=== PATIENT | male | born 1955 | race Caucasian/White ===

== ENCOUNTER 2017-07-12 16:58 | Observation (INO) | payer MEDICARE ==
--- NOTE | 2017-07-12 21:34 | PDOC.FPRHP ---
- History of Present Illness Chief Complaint: left sided rib/chest wall pain, SOB History of Present Illness: 62 yo M w/ PMH of COPD, cirrhosis, chronic hep c, h/o alcohol abuse, h/o tobacco abuse presented to outside ED for cc of left side chest wall pain that has been occurring for the last 2 days. 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 Denies any trauma to the area. He reports the pain is aching in nature and has been constant. It is worse with bending and side twisting movement in addition to laying on the affected side. He has tried to take ibuprofen and tylenol at home w/o relief of symptoms. He denied associated sob, nvdc, cp. He does endorse pain with deep inspiration and cough. He has copd and reports chronic cough, but does endorse feeling off recently and described as though he was beginning to get a cold. He denied any fever, chills, but does report congestion. In the ED he had a negative cxr, but elevated d-dimer which prompted evaluation of pe W/ CT-A. There was no evidence of PE; however, there was noted to be b/l pleural masses concerning for malignant lesions vs round pneumonia. ED Course: Rocephin, morphine, duonebs, azithromycin, ASA - Allergies/Adverse Reactions Allergies Allergy/AdvReac Type Severity Reaction Status Date / Time No Known Allergies Allergy Verified 07/12/17 22:34 - Home Medications Medication Instructions Recorded Confirmed Type Albuterol Sulfate [Proair HFA] 1 puff INH Q4HR PRN 07/12/17 07/12/17 History Fluticasone/Salmeterol [Advair 1 inh IH BID 07/12/17 07/12/17 History Diskus 250/50] Spironolactone [Aldactone] 50 mg PO DAILY 07/12/17 07/12/17 History Tamsulosin HCl [Tamsulosin HCl] 0.4 mg PO HS 07/12/17 07/12/17 History - History PMHx: COPD, cirrhosis 2/2 alcohol abuse and chronic hep c PSHx: Tonsillectomy, appendectomy, Rt knee external fixation FHx: NA Social: Prior 1/2 bottle liquor/day plus 30 beers per day drinker for approx 35 years quit 9 months ago. Prior 3ppd smoker with 90 pack year history, quit approx 15 years ago - Review of Systems General: reports: fatigue. denies: fever/chills, night sweats Eyes: denies: eye pain, vision changes ENT: reports: nasal congestion. denies: rhinorrhea Respiratory: reports: cough, congestion, shortness of breath Cardiovascular: reports: edema (chronic). denies: chest pain, palpitation Gastrointestinal: denies: nausea, vomiting, diarrhea, constipation, abdominal pain Genitourinary: denies: incontinence, polyuria Skin: denies: rashes, lesions Musculoskeletal: denies: pain, tenderness, arthritis/arthralgias Neurological: denies: numbness, syncope, weakness - Vital signs BP: 177/73 HR: 76 RR: 18 Tmax: 98.8 Pox: 95% on RA Wt: 101Kg - Physical Exam Constitutional: NAD, awake, alert and oriented HEENT: normocephalic and atraumatic, PERRLA, EOMI, conjunctiva clear, grossly normal vision, TM's clear and intact, grossly normal hearing, MMM, oropharynx clear, other (conjunctival icterus) Neck: supple, trachea midline, no LAD, no JVD, no thyromegaly Chest: other (ttp mid-axillary line approx ribs 8-11) Heart: RRR, normal S1/S2, no murmurs/rubs/gallops, pulses present, other (trace edema, non-pitting b/l LE) Lungs: CTAB, no respiratory distress, good air movement, no wheezing, no retractions Abdomen: soft, non-tender, bowel sounds present, no masses/distention Musculoskeletal: normal structure, normal tone, ROM grossly normal Neurological: no focal deficit, normal sensation Skin: no rash/lesions, good turgor, capillary refill <2 seconds Heme/Lymphatic: no unusual bruising or bleeding, no purpura, no petechia FMR H&P: Results - Labs Result Diagrams: 07/13/17 04:38 07/13/17 04:38 - Radiology Interpretation CT scan - chest Status: report reviewed by me (b/l pleural masses concerning for malignant lesions vs round pneumonia) Chest x-ray Status: report reviewed by me (NAD) FMR H&P: A/P - Problem List (1) Community acquired pneumonia Current Visit: Yes Status: Acute Code(s): J18.9 - PNEUMONIA, UNSPECIFIED ORGANISM (2) Lung mass Current Visit: Yes Status: Acute Code(s): R91.8 - OTHER NONSPECIFIC ABNORMAL FINDING OF LUNG FIELD (3) Pleurisy Current Visit: Yes Status: Acute Code(s): R09.1 - PLEURISY (4) COPD (chronic obstructive pulmonary disease) Current Visit: Yes Status: Chronic (5) Cirrhosis Current Visit: Yes Status: Chronic Code(s): K74.60 - UNSPECIFIED CIRRHOSIS OF LIVER Qualifiers: Hepatic cirrhosis type: alcoholic cirrhosis Ascites presence: without ascites Qualified Code(s): K70.30 - Alcoholic cirrhosis of liver without ascites (6) Tobacco abuse Current Visit: Yes Status: Resolved Code(s): Z72.0 - TOBACCO USE (7) Transaminitis Current Visit: Yes Status: Chronic Code(s): R74.0 - NONSPEC ELEV OF LEVELS OF TRANSAMNS & LACTIC ACID DEHYDRGNSE (8) Alcohol abuse Current Visit: Yes Status: Resolved Code(s): F10.10 - ALCOHOL ABUSE, UNCOMPLICATED - Plan 1) CAP: Pt given rocephin and azithromycin in ED 2/2 ct findings although no clinical s/s of pneumonia. CURB-65 of 0. Pt will be admitted for observation. O2 prn maintain sats >90%. Consider po abx and constinuation of therapy op if pt remains stable overnight. 2) Lung masses: concerning for malignancy vs round pneumonia, although b/l nature of lesions makes this less likely. Possibly left sided postobstructive component although pt has no respiratory s/s and is maintaining O2 sats. Given pt history consider primary lung ca or primary liver ca with mets. Can likely be worked up OP. Call pcp in am. 3) Pleurisy: likely related to #2 vs #1. Toradol and tylenol 3 for pain control. 4)COPD: Not in acute exacerbation, cont home medications 5) h/o alcohol abuse: cessation 6) h/o tobacco abuse: cessation, pt has not smoked for approx 15 years 7) Cirrhosis 2/2 hepc and alcohol abuse, appears at baseline. Cont home medications. 8) Thrombocytopenia: 2/2 #7. Monitor platelets 9) Transaminitis: 2/2 alcohol abuse and hepc, am cmp, trend 10) PPX: Pepcid and lovenox for gi and dvt ppx, respectively. 11) Code status: DNR, per pt he has OOH DNR and wishes to be DNR. Disposition/LOS: stable, </= 2 days FMR H&P: Upper Level - Pertinent history 62 yo CM with PMHx Hep C, COPD, heavy alcohol use and former tobacco abuse presented to outside ED for cough and L sided chest pain. Pt was in normal state of health until last couple days when developed mild cough with yellow phlegm and difficulty catching his breath. C/o L sided rib pain worse with movements and deep breathing. 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 Described as soreness like someone punched me . Not relieved by Tylenol. Pt felt his symptoms were consistent with an early URI. L sided chest pain still present today so came to ED. Found on chest CTA to have bibasilar lung masses vs PNA and no PE. Given Rocephin and transferred to at that time. Pt used to drink 30 pack of beer and pint whiskey daily for 39 years. Quit 9 months ago due to concern about liver cirrhosis. Heavy former smoker 3 pack/day for 37 yrs. Quit smoking 15 yrs ago. Last chest imaging was MRI 3-4 yrs ago. PCP: Thelma. - Pertinent findings Gen: alert, NAD, well-developed CV: RRR, no m/r/g HEENT: MMM Lungs: scattered wheezing, otherwise CTAB, no rhonchi, prolonged expiratory phase, no increased WOB Chest: point tenderness on L lateral chest overlying rib 8 or 9 Abd: NT/ND Ext: trace BLE edema Psych: appropriate, A&O x4 - Plan Date/Time: 07/12/172133 1. CAP. Pt may have PNA either coinciding with lung masses or as what is being viewed as lung masses on CTA chest. Pt transferred from outside ED. No hypoxia, elevated WBC count, or fevers. CURB-65 of 0. Check procalcitonin. Lung masses new with concern for malignancy. Will discuss in AM about ability to f/u with PCP as Dr. Renee is his outpt provider. Rocephin given. With mild symptoms, consider transition to oral abx in AM with possible discharge. Observation overnight with pain control for pleurisy-type pain that is likely related to this. 2. Lung masses. See above. New finding on CTA chest. Pt has hx Hep C, heavy tobacco and alcohol use, and distant methamphetamine use. No recent lung cancer screening. CTA shows possible pulmonary parenchymal metastatic lesions vs round PNA at both bases. 2x2 cm each. As above, will discuss in AM with Dr. Renee and medical team whether to involve pulmonary or complete workup outpatient. Likely need biopsy. Small area of cavitation may suggest squamous cell primary if metastatic. 3. Pleuritis. Toradol now and monitor. Morphine improved in outside ED. Pain control prior to d/c from hospital. 4. COPD. Appears at baseline. Home meds. 5. Transaminitis. Chronic in nature. Likely 2/2 Hep C. Alcohol abuse pattern but pt endorses no drinking in 9 months. Repeat in AM. 6. Cirrhosis 2/2 alcohol abuse and Hep C. Unclear if cleared or chronic infection. Not currently drinking alcohol. Cirrhotic liver on imaging. Speak with Dr. Rneee in AM for more hx. Stigmata of liver dz seen on labs. Continue spironolactone. No ascites noted. Lung masses read as potential metastatic lesions. Consider liver as potential primary although CT showed no distinct masses. 7. Former tobacco use. Heavy hx with around 90 pack-yrs. Quit 15 yrs ago. 8. Former alcohol use. Heavy abuse although none currently per pt. 9. Thrombocytopenia. Likely 2/2 chronic liver disease. I, Franklin Alexander, have evaluated this patient and agree with findings/plan as outlined by internal medicine nurse practitioner resident. Pertinent changes/additions are listed here. Attending Addendum - Attending Addendum Date/Time: 07/13/17 [id number] I personally evaluated the patient and discussed the management with Dr. Tyler I agree with the History, Examination, Assessment and Plan documented above with any addition or exceptions noted below- Briefly this is a 62 yo male with h /o COPD, cirrhosis, Hepatitis C, alcohol and tobacco abuse presented with left sided chest pain worse with deep breath or movement for last 2 days. Has had new onset of cough with thick yellow sputum during this time. Denies any SOB above his baseline. Denies any fever/chills, abdominal pain, N/V. PMH/PSH/All/ Meds/SH/ROS reviewed and agree with resident's documentation. BP: 177/73 HR: 76 RR: 18 Tmax: 98.8 Pox: 95% on RA Wt: 101Kg Exam repeated by me and agree with resident's findings. Labs- WBC=4.3 Hgb=12.6 Hct=36.1 Plt=77 Cr=0.67 XYH=884 ALT=49 Alb=2.9 CXR- no acute findings. CTA- negative for PE; possible pleural masses versus rounded pneumonia. A/P: 1) Pleuritic chest pain most likely from bronchitis versus early pneumonia- continue rocephin; pain meds. 2) COPD- continue home meds. 3) Cirrhosis-compensated
[2017-07-12 22:42] VITALS: BMI 30.4
[2017-07-12] MEDS ORDERED: Ondansetron ODT 4 MG TAB SL PRN (22:54)
[2017-07-12] MEDS ORDERED: Ondansetron HCl/PF 4 MG/2 ML Vial IVP PRN ×2 (22:54→23:10)
[2017-07-12] MEDS ORDERED: Acetaminophen 325 MG TAB PO PRN ×2 (22:54→23:10)
[2017-07-12] MEDS ORDERED: Albuterol Sulfate 2.5 mg/3 ml Neb NEB PRN ×2 (22:54→23:13)
[2017-07-12] MEDS ORDERED: cefTRIAXone\\ROCEPHIN 2 GM in Sodium Chloride 0.9% 100 ML IVPB SCH (23:00)
[2017-07-12] MEDS ORDERED: Ketorolac Tromethamine 30 MG/ML VIAL IVP SCH (23:00)
[2017-07-12] MEDS ORDERED: Ondansetron ODT 4 MG TAB PO PRN (23:10)
[2017-07-13] MEDS: Acetaminophen/Codeine 30-300mg Tablet PO PRN ×2 (02:56→08:47)
[2017-07-13 05:44] LABS: ALT (SGPT) 49 U/L (8-55); AST (SGOT) 104 U/L (5-34); Albumin 2.4 g/dL (3.4-4.8); Alkaline Phosphatase 72 U/L (40-150); Anion Gap 8 mmol/L (10-20); BUN (Urea Nitrogen) 7 mg/dL (8.4-25.7); Bilirubin, Total 2.3 mg/dL (0.2-1.2); Calc. Creatinine Clearance 160 mL/min (70-130); Calcium 7.7 mg/dL (7.8-10.44); Carbon Dioxide 24 mmol/L (23-31); Chloride 108 mmol/L (98-107); Estimated GFR-MDRD Greater than 90; Globulin 3.8 g/dL (2.4-3.5); Glucose 89 mg/dL (80-115); Potassium 3.5 mmol/L (3.5-5.1); Protein, Total 6.2 g/dL (5.8-8.1); Sodium 136 mmol/L (136-145)
--- NOTE | 2017-07-13 06:04 | PDOC.FM ---
- Subjective Subjective: Patient states his pain is improved. He states he still gets significant pain with coughing. He was counseled on the fact of finding two masses in his lungs. He understands about having a close outpatient follow up. No other complaints today. - Objective Vital Signs & Weight: Vital Signs (12 hours) Temp Pulse Resp BP Pulse Ox 07/13/17 03:00 98.3 F 76 17 119/65 95 07/13/17 00:10 96 07/12/17 23:21 98.4 F 79 20 07/12/17 22:07 98.4 F 79 20 139/78 97 Weight Weight 101.695 kg Result Diagrams: 07/13/17 04:38 07/13/17 04:38 Phys Exam - Physical Examination Constitutional: NAD HEENT: moist MMs Neck: no nodes Respiratory: wheezing present, clear to auscultation bilateral Cardiovascular: RRR, no significant murmur Gastrointestinal: soft, non-tender, no distention, positive bowel sounds Musculoskeletal: no edema, pulses present Neurological: non-focal, normal sensation, moves all 4 limbs Lymphatic: no nodes Psychiatric: normal affect, A&O x 3 Skin: no rash Dx/Plan (1) Community acquired pneumonia Code(s): J18.9 - PNEUMONIA, UNSPECIFIED ORGANISM Status: Acute (2) Lung mass Code(s): R91.8 - OTHER NONSPECIFIC ABNORMAL FINDING OF LUNG FIELD Status: Acute (3) Pleurisy Code(s): R09.1 - PLEURISY Status: Acute (4) COPD (chronic obstructive pulmonary disease) Status: Chronic (5) Cirrhosis Code(s): K74.60 - UNSPECIFIED CIRRHOSIS OF LIVER Status: Chronic Qualifiers: Hepatic cirrhosis type: alcoholic cirrhosis Ascites presence: without ascites Qualified Code(s): K70.30 - Alcoholic cirrhosis of liver without ascites (6) Transaminitis Code(s): R74.0 - NONSPEC ELEV OF LEVELS OF TRANSAMNS & LACTIC ACID DEHYDRGNSE Status: Chronic - Plan Plan: 1) Community Acquired Pneumonia, ruled out - Pt given rocephin and azithromycin in ED 2/2 ct findings although no clinical s/s of pneumonia - CURB-65 of 0 - Pro-calcitonin negative - Antibiotics not continued 2) Lung masses - concerning for malignancy vs round pneumonia - Given pt history consider primary lung ca or primary liver ca with mets - Call to PCP pending 3) Pleurisy - likely related to #2 vs #1. - Toradol and tylenol 3 for pain control. 4)COPD - Not in acute exacerbation. - Continue home meds 5) h/o alcohol abuse - cessation 6) h/o tobacco abuse - cessation - pt has not smoked for approx 15 years 7) Cirrhosis 2/2 hepc and alcohol abuse - appears at baseline - Cont home medications. 8) Thrombocytopenia - Secondary to Cirrhosis - Monitor platelets 9) Transaminitis - 2/2 alcohol abuse and hepc - Trend Disposition: Stable, Will plan for discharge and outpatient follow up.
[2017-07-13 06:08] LABS: #Eosinphils 0.4 thou/uL (0.0-0.7); #Lymphocytes 0.7 thou/uL (1.20-3.40); #Monocytes 0.5 thou/uL (0.11-0.59); #Neutrophils 2.7 thou/uL (1.40-6.50); %Basophils 0.4 % (0.0-1.0); %Eosinophils 9.3 % (0.0-10.0); %Monocytes 10.6 % (0.0-10.0); %Neutrophils 63.8 % (42.0-75.0); Hemoglobin 12.6 g/dL (14.0-18.0); MDiff Complete? YES; Macrocytosis SLIGHT = 6-15 cells (100X) (0-5/hpf); Mean Corpuscular Hemoglobin 34.7 pg (27.0-31.0); Mean Corpuscular Volume 99.1 fl (80.0-94.0); Mean Platelet Volume 6.6 fL (7.4-10.4); PLT Morphology Comment Appears Decreased; Platelet Count 77 thou/uL (130-400); RBC Distribution Width 13.9 % (11.5-14.5); Red Blood Cell (RBC) Count 3.64 mill/uL (4.70-6.10); White Blood Cell (WBC) Count 4.3 thou/uL (4.8-10.8)
[2017-07-13 08:20] VITALS: BP 118/68; TEMP 97.9
[2017-07-13] MEDS ORDERED: Famotidine 20 MG TAB PO SCH (09:00)
[2017-07-13] MEDS ORDERED: Enoxaparin Sodium 40 MG/0.4 ML SYRINGE SC SCH (09:00)
--- NOTE | 2017-07-13 13:51 | ADD-PRG ---
DATE OF SERVICE: 07/13/2017 This is an addendum to the note of Dr. Walt Hawkins. Mr. Tellez is a pleasant 62-year-old white male patient admitted with possible pneumonia. A CT demon strates a pleural-based lung mass and he will need further workup as an outpatient. This morning, he looks and feels fine. He is not having any cough, fever, shortness of breath, and no significant ch est pain. We have also discussed the case with his PCP and there will be continue workup for the ple ural mass as an outpatient.
--- NOTE | 2017-07-14 06:00 | DIS-2 ---
DATE OF ADMISSION: 07/12/2017 DATE OF DISCHARGE: 07/13/2017 RESIDENT: Watl Hawkins M.D. ADMITTING ATTENDING: Monet Burns M.D. DISCHARGE ATTENDING: Faustino Galindo M.D. CONSULTS: None. PROCEDURES: None. PRIMARY DIAGNOSES: 1. Pleurisy. 2. Lung mass. 3. Chronic obstructive pulmonary disease. 4. Cirrhosis. 5. Transaminitis. DISCHARGE MEDICATIONS: 1. ProAir HFA 1 puff inhaled q.4 h. p.r.n. 2. Spironolactone 50 mg p.o. daily. 3. Advair Diskus 250/50 one inhaled b.i.d. 4. Tamsulosin 0.4 mg p.o. at bedtime. 5. Acetaminophen #3, one tab p.o. q.4 hour p.r.n. #18. DISCONTINUED MEDICATIONS: None. HISTORY OF PRESENT ILLNESS AND HOSPITAL COURSE: This is a 62-year-old male with past medical history of COPD, cirrhosis, chronic hepatitis C, history of alcohol abuse, history of tobacco abuse, who presented to ED for chief complaint of left-sided chest wall pain that has been occurring last 2 days. 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 He went inside and the pain started suddenly. He denies any trauma to the area. He reports the pain is achy in nature and has been constant. It is worse with bending and side twisting movement in addition lay on the affected side. He has tried to take ibuprofen and Tylenol at home without relief of symptoms. He denied associated shortness of breath, nausea, vomiting, diarrhea, chest pain, or constipation. He does endorse pain with deep inspiration and cough. He has COPD and reports chronic cough, but does endorse feeling off recently described as though he is beginning to get a cold. He denies any fever or chills, but does report congestion. In the ED, he was given a negative chest x-ray, but elevated D-dimer, which prompted evaluation of PE with CTA. There is no evidence of PE; however, there was noted to be bilateral pleural masses concerning for malignant lesions versus round pneumonia. In the ED, he was given Rocephin, morphine, DuoNebs, azithromycin, and aspirin. During this hospitalization, the patient had a notable lab values of white blood cell count of 4.3, hemoglobin of 12.6, platelet count of 77. AST of 104 and ALT of 49. Procalcitonin of 0.06. Essentially, this patient was ruled out from any bacterial infection. The patient had no signs or symptoms of infection. I did have a chronic cough; however, but it is likely found to be due to the 2 x 2 cm mass is found bilaterally in his lower lung scott. The CTA scan did mention that it may be a pleural masses or soft tissue masses to be further evaluated as an outpatient. The patient was counseled on this news and with his extensive [id number] smoking history, even though he did quit 15 years ago, it does show that he has a high risk for neoplasm in this case. The patient was not given antibiotics any further as his procalcitonin was essentially 0, that helps clarify and rule out any bacterial source. The patient was given Tylenol #3 for pain relief going forward because he states that he did get good pain relief from that medication. The patient's PCP, Dr. Renee in [place] was consulted by phone to determine what would be best scenario for this patient going forward. Dr. Renee was understanding and was willing to help this patient coordinate and outpatient workup for these lung masses. Otherwise, the patient had no further complications and tolerated the hospitalization well and was discharged in appropriate condition. DISPOSITION: Stable. DISCHARGE INSTRUCTIONS: 1. Location will be discharged home in the care of himself. 2. Diet will be a heart healthy diet. 3. Activity will be as tolerated with no restrictions. 4. Follow up will be with his PCP, Dr. Renee in 3 days to ensure coordination for further evaluation of a newly found lung mass. We wish this man to the best of luck and hope he has no further complications from this condition. [facility]
== END 2017-07-13 12:12 | disposition home or self-care (01) ==
LOC: ERS 16:58 → 2SW 20:25
PROVIDERS: ADMIT Family Medicine; ATTEND Family Medicine
DX: R91.8 Other nonspecific abnormal finding of lung field (principal); R09.1 Pleurisy; J44.9 Chronic obstructive pulmonary disease, unspecified; K70.30 Alcoholic cirrhosis of liver without ascites; B18.2 Chronic viral hepatitis C; R74.0 Nonspecific elevation of levels of transaminase and lactic acid dehydrogenase [LDH]; D69.6 Thrombocytopenia, unspecified; F10.11 Alcohol abuse, in remission; Z87.891 Personal history of nicotine dependence; Z79.51 Long term (current) use of inhaled steroids; Z79.899 Other long term (current) drug therapy; Z66 Do not resuscitate
CPT/HCPCS: 80053; 84145; 85025; 94640; 96374; 99285; G0378; 36415; J1650; J1885

== ENCOUNTER 2017-07-29 21:41 | Emergency (ER) | payer MEDICARE ==
--- NOTE | 2017-07-29 23:39 | ULT ---
RIGHT LOWER EXTREMITY VENOUS DUPLEX EXAM: 07/29/17 Deep veins of the right lower extremity evaluated with color doppler, spectral analysis and compressi on. INDICATIONS: Right lower extremity pain and edema. Injury with bruising. Deep veins of the right lower extremity exhibit normal blood flow and compression. No evidence of DVT . IMPRESSION: No evidence of right lower extremity DVT. POS: [facility]
== END 2017-07-30 00:21 | disposition home or self-care (01) ==
LOC: ERS 21:41
DX: S80.01XA Contusion of right knee, initial encounter (principal); N40.0 Benign prostatic hyperplasia without lower urinary tract symptoms; J44.9 Chronic obstructive pulmonary disease, unspecified; Z87.891 Personal history of nicotine dependence; Z79.899 Other long term (current) drug therapy; W55.19XA Other contact with horse, initial encounter

== ENCOUNTER 2017-08-23 13:09 | Outpatient (CLI) | payer MEDICARE ==
--- NOTE | 2017-08-23 14:40 | ULT ---
RIGHT UPPER EXTREMITY VENOUS ULTRASOUND WITH DOPPLER: HISTORY: Trauma to leg 28 days ago. Pain, erythema, and swelling. COMPARISON: 07/29/17. TECHNIQUE: Nelson scale, color flow, Doppler imaging and spectral waveforms performed in the right lower extremity venous system. FINDINGS: There is compressibility, presence of flow, and augmentation of the common femoral vein, femoral vein , and popliteal vein. There is flow in the greater saphenous vein, profunda vein, and posterior tibi al vein. IMPRESSION: No evidence of thrombus in the right lower extremity venous system. POS: [facility]
== END 2017-08-23 13:10 | disposition home or self-care (01) ==
LOC: SCSULT 13:09
PROVIDERS: ATTEND Orthopaedic Surgery
DX: M79.604 Pain in right leg (principal); R60.9 Edema, unspecified

== ENCOUNTER 2017-11-06 09:31 | Outpatient (CLI) | payer MEDICARE | END 2017-11-06 09:32 | disposition home or self-care (01) | LOC: BICCT 09:31 | PROVIDERS: ATTEND Internal Medicine Critical Care Medicine | DX: R91.8 Other nonspecific abnormal finding of lung field (principal); I25.10 Atherosclerotic heart disease of native coronary artery without angina pectoris; R91.1 Solitary pulmonary nodule | CPT/HCPCS: 71250 ==

== ENCOUNTER 2018-07-02 16:36 | Emergency (ER) | payer MEDICARE, OTHER ==
--- NOTE | 2018-07-02 17:44 | ULT ---
US Testicular W Doppler History: [Swelling] Comparison: None. Findings: Real-time grayscale, color, and spectral analysis of the bilateral testicles was performed. Testicular echotexture and vascularity is normal. There is edema with both epididymides. Small bilateral hydroceles. There is severe subcutaneous edema within the skin. There are calcifications of the tunica albuginea on the left. Pampiniform plexus are both very distended and edematous. No abnormal testicular mass. Impression: Severe significance edema likely congestive nature given the patient's liver condition. I f there is concern for underlying fasciitis and gangrene, CT would be recommended.
[2018-07-02] MEDS ORDERED: Fentanyl 100 MCG/2 ML VIAL ONE (18:12)
[2018-07-03 00:28] LABS: Body Fluid Source Ascites Body Fluid
[2018-07-03 00:29] LABS: BF Color Yellow; BF RBC Count - Manual 291 /cumm; Clarity Clear (Clear); Tube # EDTA; WBC/NonHematic-Auto 255 /cumm
[2018-07-03 00:58] LABS: BF Segmented Neutrophils 2 %; Cell Count Non Hematic 38 %; Lymphocytes 60 %
== END 2018-07-02 23:06 | disposition home or self-care (01) ==
LOC: ERS 16:36
DX: R18.8 Other ascites (principal); M19.90 Unspecified osteoarthritis, unspecified site; J44.9 Chronic obstructive pulmonary disease, unspecified; F17.210 Nicotine dependence, cigarettes, uncomplicated; Z79.899 Other long term (current) drug therapy; Z79.891 Long term (current) use of opiate analgesic
CPT/HCPCS: 49083; 76870; 82042; 83615; 84157; 85060; 87205; 89051; 93976; 96374; J3010

== ENCOUNTER 2018-08-31 10:49 | Outpatient (CLI) | payer MEDICARE ==
--- NOTE | 2018-08-31 13:15 | MRI ---
EXAM: MRI of the abdomen without and with contrast COMPARISON: CT abdomen/pelvis 06/21/2018 HISTORY: Epigastric pain for one month. Abnormal finding on previous CT TECHNIQUE: Multiplanar multi sequence MR images were taken of the abdomen without and with IV contras t. An MRCP was performed. FINDINGS: The postcontrast images are extremely limited secondary to significant respiratory motion artifact. Liver: The liver is cirrhotic and heterogeneous in signal. Abnormal high T2 signal lesions are seen i n the right lobe of the liver. On the postcontrast images, there are 2 areas which demonstrate decreased enhancement to the background liver parenchyma measuring up to 4.2 cm in size. These areas of decreased enhancement are likely only the center of lesions seen in the liver. Small ascites. A small amount of fluid is seen around the gallbladder. Gallbladder: Removed gallstone measuring 1.6 cm in size. Common bile duct: Normal caliber without filling defects Adrenal glands: Unremarkable. Kidneys: No hydronephrosis or focal renal lesions. Spleen: Enlarged without focal lesions.. Pancreas: Unremarkable. Retroperitoneum: Spontaneous left splenorenal shunt. Bones: No marrow signal abnormality. IMPRESSION: 1. Scattered abnormal areas of signal in the liver. These are nonspecific and cannot be definitely ev aluated secondary to significant postcontrast respiratory motion artifact. The largest area does not demonstrate central enhancement with washout and therefore is more suspicious for metastatic dise ase rather than hepatocellular carcinoma. A three-phase liver CT would be a better examination for evaluation of the liver lesions given that MRI is too limited given the respiratory motion. 2. Cirrhosis with sequelae of portal hypertension 3. Cholelithiasis
== END 2018-08-31 10:50 | disposition home or self-care (01) ==
LOC: SCSMRI 10:49
PROVIDERS: ATTEND Internal Medicine
DX: K70.31 Alcoholic cirrhosis of liver with ascites (principal); K76.6 Portal hypertension; R60.0 Localized edema; K80.20 Calculus of gallbladder without cholecystitis without obstruction; R93.2 Abnormal findings on diagnostic imaging of liver and biliary tract
CPT/HCPCS: 74183

== ENCOUNTER 2018-09-27 09:16 | Day surgery (SDC) | payer MEDICARE, OTHER ==
[2018-09-26 11:09] VITALS: BMI 32.6
--- NOTE | 2018-09-27 12:26 | OP ---
DATE OF PROCEDURE: 09/27/2018 PROCEDURES PERFORMED: Esophagogastroduodenoscopy (diagnostic), colonoscopy (diagnostic). INDICATIONS FOR PROCEDURE: Alcoholic cirrhosis, screening for esophageal varices, abnormal GI imaging showing lesions within the liver concerning for metastatic disease, screening for malignant neoplasm of the colon. DESCRIPTION OF PROCEDURES: After the risks and benefits of the procedures were explained to the patient including risks of bleeding, infection, perforation, reactions to anesthesia, aspiration, and/or pain, informed consent was obtained. The patient was then taken to the endoscopy suite, where deep sedation was administered via propofol and anesthesia support. Once adequate sedation was achieved, the standard gastroscope was introduced into the mouth with intubation of the esophagus, stomach, and the proximal small intestines with the findings listed below. The patient tolerated this portion of the procedure well with no immediate perioperative complications. Upon completion of this portion of the procedure, all equipment was removed from the patient and the bed was rotated 180 degrees in anticipation of the colonoscopy. After a digital rectal examination was then performed, the standard colonoscope was introduced into the rectum and advanced to the cecum with some difficulty requiring manual abdominal pressure to facilitate passage of the scope. The quality of the prep was good. The patient tolerated the procedure well with no immediate perioperative complications. Upon conclusion of the procedure, all equipment was removed from the patient, and he was transferred to Day Stay in satisfactory condition. EGD FINDINGS: Esophagus: Normal-appearing mucosa was seen in the proximal, mid, and distal esophagus. There was no evidence of erosions, ulcerations, mass, lesions, active/recent bleeding, or esophageal varices. Stomach: A mild amount of diffuse mucosal erythema was seen throughout the entire stomach in a mosaic type pattern without any other associated abnormalities. That was seen extending from the cardia, fundus, body, greater curvature, and proximal antrum. Within the antrum, there were multiple petechiae like clots without any underlying abnormalities. Upon aggressive irrigation, there was no evidence of active bleeding seen in this region of the stomach. Otherwise, there was no evidence of erosions, ulcerations, mass, lesions, or active bleeding. Duodenum: Normal-appearing mucosa was seen in both the duodenal bulb and second portion of the duodenum. There was no evidence of erosions, ulcerations, mass, lesions, or active/recent bleeding. IMPRESSION: 1. Mild portal hypertensive gastropathy. 2. Petechiae like clots in the gastric antrum consistent with nonsteroidal anti-inflammatory drugs gastritis. 3. No evidence of esophageal or gastric varices. COLONOSCOPY FINDINGS: Digital rectal exam, normal findings were seen on external examination. COLON FINDINGS: Normal-appearing mucosa was seen at the appendiceal orifice and ileocecal valve. Normal-appearing mucosa was also seen in the cecum, ascending colon, transverse colon, descending colon, sigmoid colon, and rectum. Small nonbleeding internal hemorrhoids were seen on rectal retroflexion. IMPRESSION: 1. Small internal hemorrhoids. 2. Otherwise normal colonoscopy. RECOMMENDATIONS: 1. Would repeat EGD in 3 years for continued screening for esophageal varices. 2. Would avoid any NSAIDs. 3. Recommend a higher fiber diet given the presence of internal hemorrhoids on colonoscopy. 4. Continue current medications including spironolactone and furosemide for ascites. 5. We would refer the patient over to the Oncology Service for further evaluation of liver lesions and possibly including liver biopsy for further evaluation. 6. Followup in the GI clinic in 2 to 3 weeks for further management of cirrhosis. Job ID: [id number]
== END 2018-09-27 13:28 | disposition home or self-care (01) ==
LOC: SDC 09:16
PROVIDERS: ATTEND Internal Medicine
PROC: 0DJ08ZZ Inspection of Upper Intestinal Tract, Via Natural or Artificial Opening Endoscopic (ICD-10-PCS; principal; 2018-09-27)
PROC: 0DJD8ZZ Inspection of Lower Intestinal Tract, Via Natural or Artificial Opening Endoscopic (ICD-10-PCS; 2018-09-27)
DX: Z12.11 Encounter for screening for malignant neoplasm of colon (principal); K64.8 Other hemorrhoids; K76.6 Portal hypertension; K31.89 Other diseases of stomach and duodenum; K70.30 Alcoholic cirrhosis of liver without ascites; R93.2 Abnormal findings on diagnostic imaging of liver and biliary tract; Z79.899 Other long term (current) drug therapy
CPT/HCPCS: 43235; G0121

== ENCOUNTER 2018-11-16 07:06 | Outpatient (CLI) | payer MEDICARE, OTHER ==
--- NOTE | 2018-11-16 09:32 | ULT ---
COMPLETE ABDOMEN ULTRASOUND: INDICATION: History of cirrhosis. COMPARISON: CT of the abdomen and pelvis dated 09/19/2018. FINDINGS: Again seen are changes of cirrhosis with nodular contour and coarse echogenicity of the liver parench yma. No focal hepatic lesion is evident. The spleen is enlarged measuring 16.4 cm. There are some splenic varicosities present. There is asc ites present within the upper abdomen. Gallbladder is nondistended with gallbladder sludge and stones. No sonographic Toscano's sign is repo rted. Common bile duct measured 4 mm. Pancreas is obscured by overlying bowel gas. The right kidney measures 14 cm in length and the left measures 12.6 cm. There is hepatofugal flow suspected within the main portal vein. The aorta was not well seen due to overlying bowel gas. Visualized aspects of the IVC appeared withi n normal limits. IMPRESSION: 1. Cirrhosis with findings of splenomegaly. 2. Hepatofugal flow is demonstrated within the portal vein with numerous splenic varicosities. A de dicated hepatic Doppler evaluation would be helpful for further characterization. 3. Ascites within the upper abdomen. 4. Cholelithiasis with gallbladder sludge without overt sonographic evidence of acute cholecystitis. 5. The focal hepatic lesions identified on the prior MR examination and CT examination are not well detailed on the current examination. Overlying bowel gas does limit the exam by detail. POS: OFF
== END 2018-11-16 07:07 | disposition home or self-care (01) ==
LOC: ULT 07:06
PROVIDERS: ATTEND Internal Medicine Hematology & Oncology
DX: C22.9 Malignant neoplasm of liver, not specified as primary or secondary (principal); R16.0 Hepatomegaly, not elsewhere classified; K74.60 Unspecified cirrhosis of liver; B19.20 Unspecified viral hepatitis C without hepatic coma; I86.8 Varicose veins of other specified sites; R18.8 Other ascites; K80.20 Calculus of gallbladder without cholecystitis without obstruction; K82.8 Other specified diseases of gallbladder
CPT/HCPCS: 76700

== ENCOUNTER 2018-11-26 10:25 | Inpatient (IN) | payer MEDICARE ==
[2018-11-26 11:17] LABS: INR-International Normal Ratio 1.5; PTT 29.7 SEC (22.9-36.1); Prothrombin Time 17.7 SEC (12.0-14.7)
[2018-11-26 11:19] LABS: #Eosinphils 0.1 thou/uL (0.0-0.7); #Lymphocytes 0.4 thou/uL (1.20-3.40); #Monocytes 0.1 thou/uL (0.11-0.59); #Neutrophils 1.9 thou/uL (1.40-6.50); %Basophils 0.4 % (0.0-1.0); %Eosinophils 2.5 % (0.0-10.0); %Lymphocytes 17.2 % (21.0-51.0); %Monocytes 5.2 % (0.0-10.0); %Neutrophils 74.7 % (42.0-75.0); Hemoglobin 11.6 g/dL (14.0-18.0); Mean Corpuscular HGB CONC 35.2 g/dL (32.0-36.0); Mean Corpuscular Hemoglobin 36.6 pg (27.0-31.0); Mean Platelet Volume 6.2 fL (7.4-10.4); Platelet Count 47 thou/uL (130-400); RBC Distribution Width 14.4 % (11.5-14.5); Red Blood Cell (RBC) Count 3.18 mill/uL (4.70-6.10); White Blood Cell (WBC) Count 2.6 thou/uL (4.8-10.8)
[2018-11-26 11:29] LABS: Bilirubin Negative (Negative); Blood, Urine Trace (Negative); Glucose, Urine (Dipstick) 100 mg/dL (Negative); Leukocyte Negative (Negative); Nitrite Negative (Negative); Protein, Urine (Dipstick) Negative (Neg-Trace); Urobilinogen > or = 8.0 mg/dL (Less than 2)
[2018-11-26 11:31] LABS: Clarity Clear (Clear)
[2018-11-26 11:32] LABS: ALT (SGPT) 59 U/L (8-55); AST (SGOT) 68 U/L (5-34); Albumin 2.6 g/dL (3.4-4.8); Alkaline Phosphatase 88 U/L (40-110); Anion Gap 10 mmol/L (10-20); BUN (Urea Nitrogen) 25 mg/dL (8.4-25.7); Calc. Creatinine Clearance 0 mL/min (70-130); Calcium 8.7 mg/dL (7.8-10.44); Carbon Dioxide 31 mmol/L (23-31); Chloride 94 mmol/L (98-107); Estimated GFR-MDRD 50; Globulin 4.5 g/dL (2.4-3.5); Glucose 134 mg/dL (80-115); Lipase 118 U/L (8-78); Potassium 3.8 mmol/L (3.5-5.1); Protein, Total 7.1 g/dL (5.8-8.1); Sodium 131 mmol/L (136-145)
[2018-11-26 11:37] LABS: Bacteria/HPF 1+ HPF (None Seen); RBC/HPF None Seen HPF (0-3); Squamous Epithelial 0-3 HPF (0-3); WBC/HPF 0-3 HPF (0-3)
--- NOTE | 2018-11-26 11:41 | CT ---
CT Brain WO Con: 11/26/2018 10:32 AM CLINICAL HISTORY: Fall. COMPARISON: None. FINDINGS: Hemorrhage: None. Ventricular system: Normal in size and morphology for the patient's age. Cerebral parenchyma: Normal Midline shift: None. Mass: No mass effect. Calvarium: Normal. Visualized Paranasal sinuses: Clear. IMPRESSION: No acute intracranial abnormalities.
[2018-11-26] MEDS ORDERED: Lorazepam 2 MG/ML VIAL ONE ×2 (15:56→19:47)
--- NOTE | 2018-11-26 16:54 | PDOC.FPRHP ---
- History of Present Illness Chief Complaint: increased altered mental status and tremors History of Present Illness: 63-year-old male patient with a past medical history of Choleangocarcinoma, hepatocellular carcinoma, adenocarcinoma, hepatitis C, cirrhosis and alcohol abuse disorder presents to the emergency department per EMS after gradually worsening somnolence and unawareness of his surroundings. Patients is here with him giving history. She states that he started chemotherapy last Monday. Drugs of cisplatin and Gemzar started for chemotherapy protocol. Patient started to get a headache and diffuse tremors on Thrday, then gradually becoming more and more tired. Patient slept most of Monday, only getting up to eat once. Last night he woke up and was falling/stumpling. When asked what he was doing, he started to slap at his . He did not recognize who she was. Patient was supposed to be seen by Dr. Parham today to have a port placed. He could not go to this appointment. Patients called Dr. Mike, oncologist, who told her to take patient to the emergency department. Patients states that he used to be a very heavy drinker but has stopped drinking. He did have a time back in July and then again around 11/07 when he drank heavily for 3 to 4 days. She states that he has not had access to alcohol and really thinks he has not been drinking. He used to drink six beers daily +1 pint of liquor daily. Pt's does not think he has been having BM's. ED Course: Pt given 1 L NS and ativan in ED. - Allergies/Adverse Reactions Allergies Allergy/AdvReac Type Severity Reaction Status Date / Time No Known Allergies Allergy Verified 09/26/18 11:08 - Home Medications Medication Instructions Recorded Confirmed Type Albuterol Sulfate [Proair HFA] 1 puff INH Q4HR PRN 07/12/17 09/26/18 History Fluticasone/Salmeterol [Advair 1 inh IH BID 07/12/17 09/26/18 History Diskus 250/50] Spironolactone [Aldactone] 50 mg PO DAILY 07/12/17 09/26/18 History Tamsulosin HCl 0.4 mg PO DAILY 07/12/17 09/26/18 History Acetaminophen W/ Codeine 1 tab PO Q4HR PRN #18 tab 07/13/17 09/26/18 Rx [Acetaminophen/Codeine #3] Amoxicillin/Potassium Clav 1 tab PO BID 09/26/18 09/26/18 History [Amox-Clav 875-125 mg Tablet] Furosemide 1 tab PO DAILY 09/26/18 09/26/18 History - History PMHx: adenocarcinoma, HCC, cholangocarcinoma, hep C, cirrhosis, COPD, PSHx: X2 heart caths, no significant CAD FHx: THN, OR/CAD, mother: DM II, Brother: CAD at 58 y/o required CABG X4 vessels Social: prior etoh abuse of 6 beer and 1 pint liquor daily. Last drinking episodes in July 2018 and November 07 2018. Pt has not had any etoh for at least 2 weeks. Quit smoking 20 years ago. IVDA when he was younger. None now. - Review of Systems ROS unobtainable: due to mental status (Pt not awake to answer questions. Hx per .) General: reports: other (somnolence) Neurological: reports: other (headache.) - Vital signs BP: 131/97 HR: 124 RR: 24 Tmax: 97 Pox: 98% on RA Wt: - Physical Exam Constitutional: other (somnolent, but arousable.) HEENT: normocephalic and atraumatic, PERRLA, MMM -HEENT: + scleral icterus Neck: supple, trachea midline, no thyromegaly Heart: pulses present -Heart: Tachycardic, rate of 124. S3 present BLE 2+ pitting edema to mid champion. Lungs: CTAB, no respiratory distress, good air movement, no rales/rhonchi, no wheezing, no retractions Abdomen: soft, non-tender (pt does not withdrawal to deep pressure palpation of abdomen.), bowel sounds present -Abdomen: hepatomegaly fluid wave present protuberant abdomen. Musculoskeletal: normal structure, normal tone -Skin: Jaundice skin. Multiple, diffuse spider angiomas. Henderson erythema. Psychiatric: other (somnolent, but arousable.) FMR H&P: Results - Labs Result Diagrams: 11/27/18 03:06 11/27/18 03:06 Lab results: WBC 2.6 thou/uL (4.8-10.8) L 11/26/18 10:57 Hgb 11.6 g/dL (14.0-18.0) L 11/26/18 10:57 Hct 33.0 % (42.0-52.0) L 11/26/18 10:57 MCV 104.0 fL (78.0-98.0) H 11/26/18 10:57 Plt Count 47 thou/uL (130-400) L 11/26/18 10:57 Neutrophils % 74.7 % (42.0-75.0) 11/26/18 10:57 Sodium 131 mmol/L (136-145) L 11/26/18 10:57 Potassium 3.8 mmol/L (3.5-5.1) 11/26/18 10:57 Chloride 94 mmol/L (98-107) L 11/26/18 10:57 Carbon Dioxide 31 mmol/L (23-31) 11/26/18 10:57 BUN 25 mg/dL (8.4-25.7) 11/26/18 10:57 Creatinine 1.43 mg/dL (0.7-1.3) H 11/26/18 10:57 Glucose 134 mg/dL (80-115) H 11/26/18 10:57 Calcium 8.7 mg/dL (7.8-10.44) 11/26/18 10:57 Total Bilirubin 5.0 mg/dL (0.2-1.2) H 11/26/18 10:57 AST 68 U/L (5-34) H 11/26/18 10:57 ALT 59 U/L (8-55) H 11/26/18 10:57 Alkaline Phosphatase 88 U/L (40-110) 11/26/18 10:57 Ammonia 49 umol/L (18-72) 11/26/18 10:57 B-Natriuretic Peptide 121.2 pg/mL (0-100) H 11/26/18 10:57 Serum Total Protein 7.1 g/dL (5.8-8.1) 11/26/18 10:57 Albumin 2.6 g/dL (3.4-4.8) L 11/26/18 10:57 Lipase 118 U/L (8-78) H 11/26/18 10:57 Urine Ketones Negative mg/dL (Negative) 11/26/18 11:17 Urine Blood Trace (Negative) A 11/26/18 11:17 Urine Nitrite Negative (Negative) 11/26/18 11:17 Ur Leukocyte Esterase Negative (Negative) 11/26/18 11:17 Urine RBC None Seen HPF (0-3) 11/26/18 11:17 Urine WBC 0-3 HPF (0-3) 11/26/18 11:17 Ur Squamous Epith Cells 0-3 HPF (0-3) 11/26/18 11:17 Urine Bacteria 1+ HPF (None Seen) 11/26/18 11:17 - EKG Interpretation EKG: rate 125 - Radiology Interpretation CT scan - head Status: report reviewed by me (no acute process) FMR H&P: A/P - Problem List (1) Hepatic encephalopathy Current Visit: Yes Status: Acute Code(s): K72.90 - HEPATIC FAILURE, UNSPECIFIED WITHOUT COMA (2) Cholangiocarcinoma Current Visit: Yes Status: Acute Code(s): C22.1 - INTRAHEPATIC BILE DUCT CARCINOMA (3) Adenocarcinoma Current Visit: Yes Status: Acute Code(s): C80.1 - MALIGNANT (PRIMARY) NEOPLASM, UNSPECIFIED (4) COPD (chronic obstructive pulmonary disease) Current Visit: No Status: Chronic (5) Leukopenia Current Visit: Yes Status: Acute Code(s): D72.819 - DECREASED WHITE BLOOD CELL COUNT, UNSPECIFIED (6) Alcoholic cirrhosis of liver with ascites Current Visit: Yes Status: Acute Code(s): K70.31 - ALCOHOLIC CIRRHOSIS OF LIVER WITH ASCITES (7) Hepatocellular carcinoma Current Visit: Yes Status: Acute Code(s): C22.0 - LIVER CELL CARCINOMA - Plan 63 y/o M admitted to [facility] for treatment and evaluation of Hepatic Encephalopathy. 1. Hepatic Encephalopathy 2/2 alcoholic cirrhosis - Ammonia 48, Bili 5.0, INR 1.5 - MELD score: 25 - Trend Ammonia, INR, Procal, CBC, and CMP - GI consulted - In consideration: paracentesis and rocephin therapy for possible SBP - Lactulose 30 gm QID 2. Alcoholic Cirrhosis - Continue home medications of Spironolactone, and Furosemide - Restarted Lactulose at 30 gm QID, Per rectum until pt can tolerate PO. 3. Cholangiocarcinoma, HCC, and Adenocarcinoma - Oncologist, Dr. Mike consulted. Appreciate recs. - Pt had Cisplastin and Gemzan started first protocol last Monday11/20/18. 4. Acute Kidney injury - Most likely due to decreased PO intake over past couple of days; dehydration. - given 1 L NS in ED. - Ordered another 1 L LR bolus - Cr. 1.43 - Trend CMP 5. Leukocytosis - WBC 2.6 - Trend CBC - Ordered Procal and blood cultures. 6. Hx of Hepatitis C - s/p interferon therapy, in - Still has chronic disease 7. Hx of COPD - continue home advair diskus MARK and proair PRN once mentation allows. 8. Hx of BPH - Continue home medication of tamsulosin Code Status: via next of kin/ expressing patient's known wishes, DNR-DNI DVT ppx: SCD's Diet: NPO Dispo: Admit to inpatient IMCU. Stable. FMR H&P: Upper Level - Pertinent history 63 y/o M PMHx cholangiocarcinoma, adenocarcinonma, hepatocellular carcinoma, alcoholic cirrhosis presents to the ED due to agitation and somnolence. History obtained from his . She reports that he started chemotherapy on Monday and was acting like himself, then became somnolent and then later agitated. She reports he has been sleeping all day and not eating much since . His last drink was over two weeks ago when he had one beer. She reports he has not been taking the lactulose lately, but has been taking the lasix and spironolactone until the past day. - Pertinent findings BP: 140/103, Pulse: 128, Resp: 16, O2 sat: 100 on Room Air PE: Gen - somnolent, difficult to arouse, resting comfortably s/p 1mg ativan HEENT - scleral icterus, MMM CV - tachycardic, regular rhythm, no murmurs Lungs - CTAB, no wheezes Abd - protuberant, distended, + fluid wave Skin - jaundice, spider angiomas Labs: WBC 2.6, Platelets 47, PT 17.7, INR 1.5, PTT 29.7, Na 131, Cr 1.43, Ammonia 49, T. bili 5.0, AST 68, ALT 59, Alk Phos [address]: no acute process - Plan Date/Time: 11/26/18 1650 I, Lelia Leal MD, PGY-3, have evaluated this patient and agree with findings/ plan as outlined by intern product marketing manager resident. Pertinent changes/additions are listed here. 1. Hepatic Encephalopathy 2/2 alcoholic cirrhosis Pt agitated and somnolent. Has not been taking lactulose lately -Consider hepatic US with doppler -Consulted GI, appreciate recs -Trend labs -Lactulose QID -Will check blood cultures to r/o infection and consider diagnostic paracentesis , but at this time suspect hepatic encephalopathy more likely. 2. Alcoholic Cirrhosis Last drink > 2 weeks ago. MELD-Na score 25 and Child Burns Class C -Consult GI as above -Restart home lasix and spironolactone -ASE protocol 3. Cholangiocarcinoma, HCC Started chemo on Monday -Will consult onc 4. Leukopenia Could be 2/2 chemotherapy vs infection -Will check blood cultures and consult onc 5. CARL likely 2/2 dehydration s/p 1L NS -Will give another liter bolus and monitor closely Dispo: Admit to IMCU to monitor closely LOS likely over 2 days Addendum - Attending - Attending Attestation Date/Time: 11/27/18 8976 I personally evaluated the patient and discussed the management with Dr. Villalobos and team. I agree with the History, Examination, Assessment and Plan documented above with any addition or exceptions noted below. Patient with a progressive decline that started with a mild hand tremor and progressed to disrupted sleep and his current presentation. He has been unable to take PO or meds for 1-2 days. No fevers, cough, congestion, shortness of breath, other systemic symptoms per . She is able to provide a detailed drinking history over the last month, where he did have occasional episodes but , per what I feel is a reliable history, no persistent drinking that would lead to a withdrawal syndrome. He had a similar episode to this in the past, that was more mild, that resolved with lactulose. I agree with the above exam. I feel likely hepatic encphalopathy d/t dehydration, an acute worsening of liver function in the setting of an CARL, multiple CA, and recent initiation of chemotx -being [place] lactulose, admit to IMCU -I feel low risk for SBP in light of exam and history but will ask my partner Dr. Ervin, to evaluate the case for a potential dx paracentesis -I have notified Dr. Mike
[2018-11-26] MEDS ORDERED: PROVENTIL INHALER 6.7 G (200 INHALATIONS) INH PRN (17:19)
[2018-11-26] MEDS ORDERED: Lactated Ringer's 1,000 ML IV SCH (17:30)
[2018-11-26] MEDS ORDERED: Lorazepam 2 MG/ML VIAL SLOW IVP SCH (20:00)
[2018-11-26] MEDS ORDERED: Lactulose 10 GM/15 ML Oral Solution PR SCH (23:45)
[2018-11-26] MEDS: Mometasone/Formoterol 120 PUFF INHALER INH SCH (23:47)
[2018-11-27] MEDS ORDERED: Lorazepam 2 MG/ML VIAL ONE (02:49)
[2018-11-27 03:40] LABS: INR-International Normal Ratio 1.4; PTT 29.2 SEC (22.9-36.1); Prothrombin Time 17.4 SEC (12.0-14.7)
[2018-11-27 03:54] LABS: ALT (SGPT) 57 U/L (8-55); AST (SGOT) 69 U/L (5-34); Albumin 2.8 g/dL (3.4-4.8); Alkaline Phosphatase 105 U/L (40-110); Anion Gap 12 mmol/L (10-20); BUN (Urea Nitrogen) 28 mg/dL (8.4-25.7); Bilirubin, Total 8.8 mg/dL (0.2-1.2); Calc. Creatinine Clearance 0 mL/min (70-130); Calcium 9.3 mg/dL (7.8-10.44); Carbon Dioxide 25 mmol/L (23-31); Chloride 98 mmol/L (98-107); Estimated GFR-MDRD 54; Globulin 4.5 g/dL (2.4-3.5); Glucose 131 mg/dL (80-115); Potassium 4.4 mmol/L (3.5-5.1); Protein, Total 7.3 g/dL (5.8-8.1); Sodium 131 mmol/L (136-145)
[2018-11-27] MEDS ORDERED: Lorazepam 2 MG/ML VIAL SLOW IVP ONE (04:11)
[2018-11-27 05:05] LABS: #Eosinphils 0.3 thou/uL (0.0-0.7); #Monocytes 0.5 thou/uL (0.11-0.59); #Neutrophils 5.9 thou/uL (1.40-6.50); %Basophils 0.1 % (0.0-1.0); %Eosinophils 4.1 % (0.0-10.0); %Lymphocytes 13.1 % (21.0-51.0); %Monocytes 6.3 % (0.0-10.0); %Neutrophils 76.4 % (42.0-75.0); Anisocytosis SLIGHT = 6-15 cells (100X) (0-5/hpf); Hemoglobin 12.3 g/dL (14.0-18.0); MDiff Complete? YES; Mean Corpuscular HGB CONC 36.9 g/dL (32.0-36.0); Mean Corpuscular Hemoglobin 37.4 pg (27.0-31.0); Mean Platelet Volume 7.2 fL (7.4-10.4); Platelet Count 58 thou/uL (130-400); Platelet Morphology Comment Appears Decreased; RBC Distribution Width 14.5 % (11.5-14.5); Red Blood Cell (RBC) Count 3.29 mill/uL (4.70-6.10); White Blood Cell (WBC) Count 7.7 thou/uL (4.8-10.8)
--- NOTE | 2018-11-27 06:35 | PDOC.FM ---
- Subjective Subjective: Pt is asleep when I evaluated him. Awakens to voice, but somnolent. Vitals stable, HR 100's. 2-3 water BM's overnight, per nurse in ED. Pt was on ER hold overnight. - Objective MAR Reviewed: Yes Result Diagrams: 11/27/18 03:06 11/27/18 03:06 Phys Exam - Physical Examination somnolent, arousable to voice, does not answer questions. HEENT: PERRLA, oral pharynx no lesions scleral icterus. Neck: no nodes, supple Respiratory: no wheezing, no rales, no rhonchi, clear to auscultation bilateral Cardiovascular: RRR, no rub distant heart sounds. HR 100 this AM. Gastrointestinal: soft, no distention, positive bowel sounds Moans on deep palpation of abdomen. Musculoskeletal: pulses present, edema present (BLE 2+ pitting edema. ) Neurological: moves all 4 limbs Lymphatic: no nodes Skin: no rash, normal turgor, cap refill <2 seconds Deviation from normal: jaundice skin. Spider angiomas diffusely. Henderson erythema. Dx/Plan (1) Hepatic encephalopathy Code(s): K72.90 - HEPATIC FAILURE, UNSPECIFIED WITHOUT COMA Status: Acute (2) Cholangiocarcinoma Code(s): C22.1 - INTRAHEPATIC BILE DUCT CARCINOMA Status: Acute (3) Adenocarcinoma Code(s): C80.1 - MALIGNANT (PRIMARY) NEOPLASM, UNSPECIFIED Status: Acute (4) COPD (chronic obstructive pulmonary disease) Status: Chronic (5) Leukopenia Code(s): D72.819 - DECREASED WHITE BLOOD CELL COUNT, UNSPECIFIED Status: Acute (6) Alcoholic cirrhosis of liver with ascites Code(s): K70.31 - ALCOHOLIC CIRRHOSIS OF LIVER WITH ASCITES Status: Acute (7) Hepatocellular carcinoma Code(s): C22.0 - LIVER CELL CARCINOMA Status: Acute - Plan Plan: 63 y/o M admitted to [facility] for treatment and evaluation of Hepatic Encephalopathy. 1. Hepatic Encephalopathy 2/2 alcoholic cirrhosis - Ammonia 48--> 79, Bili 5.0--> 8.8, INR 1.5 --> 1.4 - MELD score: 25 - Trend Ammonia, INR, Procal, CBC, and CMP - GI consulted, Dr. Anthony - In consideration: paracentesis and rocephin therapy for possible SBP. WBC 7.7. Tender abdomen 11/27. - Procal 0.21--> 0.29 - Lactulose 30 gm QID, per NG tube, as pt is encephalopathic. - BM's overnight: 2-3 watery stools. 2. Alcoholic Cirrhosis - Continue home medications of Spironolactone, and Furosemide - Restarted Lactulose at 30 gm QID, Per NG tube until pt can tolerate PO. - ASE protocol initiated - Ativan PRN 3. Cholangiocarcinoma, HCC, and Adenocarcinoma - Oncologist, Dr. Mike consulted. Appreciate recs. - Pt had Cisplastin and Gemzan started first protocol last Monday11/20/18. 4. Acute Kidney injury, improving - Most likely due to decreased PO intake over past couple of days; dehydration. - given 1 L NS in ED. - Ordered another 1 L LR bolus - Cr. 1.43--> 1.33 - Trend CMP 5. Leukocytosis, improved - WBC 2.6--> 7.7 - Trend CBC - Ordered Procal and blood cultures. - Procal 0.21--> 0.23 - Blood ccx pending 6. Hx of Hepatitis C - s/p interferon therapy, in - Still has chronic disease 7. Hx of COPD - continue home advair diskus MARK and proair PRN once mentation allows. - Duonebs PRN 8. Hx of BPH - Continue home medication of tamsulosin Code Status: via next of kin/ expressing patient's known wishes, DNR-DNI DVT ppx: SCD's Diet: NPO, NG tube placed. Dispo: Admit to inpatient IMCU. Stable. Addendum - Attending - Attending Attestation Date/Time: 11/27/18 8160 I personally evaluated the patient and discussed the management with Dr. Villalobos. I agree with the History, Examination, Assessment and Plan documented above with any addition or exceptions noted below. Pt with hepatic encephalopathy and ammonia uptrended. Continuing lactulose. Will try to limit benzos at this time. His abdomen is tender this morning and we have concern for sbp. Will get IR to do a diagnostic paracentesis and begin Rocephin until cultures result. Pt's updated at bedside.
[2018-11-27] MEDS: Mometasone/Formoterol 120 PUFF INHALER INH SCH ×2 (07:38→19:03)
[2018-11-27] MEDS ORDERED: Spironolactone 25 MG TAB PO SCH (09:00)
[2018-11-27] MEDS ORDERED: Lactulose 10 GM/15 ML Oral Solution PR SCH (09:00)
[2018-11-27] MEDS ORDERED: Furosemide 40 MG TAB PO SCH (09:00)
[2018-11-27 09:07] VITALS: BMI 31.6
--- NOTE | 2018-11-27 09:16 | RAD ---
Portable chest: HISTORY: COPD COMPARISON: 11/19/2018 FINDINGS: Lung scott are clear. Calcified granuloma in the left lung base. Heart and mediastinum edi ear unremarkable. Vascularity is normal. Visualized osseous structures unremarkable. IMPRESSION: No acute finding
--- NOTE | 2018-11-27 10:11 | CON ---
DATE OF CONSULTATION: HISTORY OF PRESENT ILLNESS: Sonny Tellez is a 63-year-old gentleman, who was brought in to the hospital with metabolic encephalopathy. As outlined in his previous medical history, he has known history of cirrhosis, hepatitis C, alcohol abuse and apparently cholangiocarcinoma. He has seen Oncology for ongoing chemotherapy, which apparently he was to receive. Someway in the past, he had lung masses. He is unable to give any history. This morning, he is clearly encephalopathic. His ammonia level is 79, mildly elevated. PAST MEDICAL HISTORY: COPD, cirrhosis, tobacco abuse, alcohol abuse, cholangiocarcinoma, and BPH. PAST SURGICAL HISTORY: Otherwise included previous endoscopy, previous cardiac cath, and appendix. HOME MEDICATIONS: Include: 1. Flomax 0.4. 2. Aldactone 50. 3. Lasix. 4. Advair. 5. Amoxicillin. 6. Albuterol. 7. Tylenol. ALLERGIES: NONE. REVIEW OF SYSTEMS: Otherwise unobtainable. PHYSICAL EXAMINATION: HEENT: Encephalopathic. VITAL SIGNS: His saturations are 93%, pulse 80, temperature 97, and blood pressure 108/68. CHEST: Decreased breath sounds. No wheezing. CARDIAC: Normal S1 and S2. No gallops. ABDOMEN: Distended and soft. LABORATORY DATA: White count is 7000, hemoglobin and hematocrit are 12 and 33, platelet count is low 58. Creatinine 1.3. I do not see a chest x-ray. Sodium 130. IMPRESSION: Metabolic encephalopathy, end-stage liver disease, hepatitis, cirrhosis with cholangiocarcinoma, chronic obstructive pulmonary disease. PLAN: He is a DNR. At this stage, I would consider transfer to the ICU comfort care. I agree with lactulose. Symptomatic relief neb treatments. We will follow. Job ID: [id number]
[2018-11-27] MEDS: Tamsulosin HCl 0.4 MG CAP PO SCH (13:22)
--- NOTE | 2018-11-27 14:47 | PDOC.PALCO ---
Palliative Care Consult - Consult Details Requesting Physician: Dr Ann Reason for Consult: advance directives assistance, family support Family Members Present: opal - Pertinent HPI Recent diagnosis of liver cancer with initial round of chemo one week ago. Patient with increase in weakness Monday and Monday and became non responsive 11/26. called ems and patient was transported to [facility] for evaluation. Evaluated and admitted secondary to hepatic encephalopathy. - Pertinent PMH Hepatitis C, COPD, Leukocytosis, CARL, Hepatocellular carcinoma, - Social History Smoking Status: Current every day smoker Smoking: cigarettes Alcohol Use: heavy ( states paitent has decreased alcohol consumpson since june) Drug Use History: none Living Situation: - Allergies Allergies/Adverse Reactions: Allergies Allergy/AdvReac Type Severity Reaction Status Date / Time No Known Allergies Allergy Verified 09/26/18 11:08 - Subjective Confused, restless. ROS: unable to obtain secondary to confusion, agitation. - Objective Vital Signs: Vital Signs - Most Recent Temp Pulse Resp BP Pulse Ox 98.3 F 98 17 131/91 H 100 11/27/18 11:00 11/27/18 08:00 11/27/18 08:00 11/27/18 08:00 11/27/18 08:30 Palliative Performance Scale: 30 - Physical Exam Constitutional: confusion, moderate distress HEENT: moist MMs, EOMI Deviation from normal: icteric Deviation from normal: Diminished to bases, adventicious lung sounds Cardiovascular: RRR Deviation from normal: Elevated heart rate, Deviation from normal: distended, tympani on percussion Musculoskeletal: edema present Neurological: moves all 4 limbs Deviation from normal: confused, agitated Skin: no rash, cap refill <2 seconds - Problem List (1) Palliative care encounter Code(s): Z51.5 - ENCOUNTER FOR PALLIATIVE CARE Current Visit: Yes Status: Acute (2) Adenocarcinoma Code(s): C80.1 - MALIGNANT (PRIMARY) NEOPLASM, UNSPECIFIED Current Visit: Yes Status: Acute (3) Alcoholic cirrhosis of liver with ascites Code(s): K70.31 - ALCOHOLIC CIRRHOSIS OF LIVER WITH ASCITES Current Visit: Yes Status: Acute (4) Hepatic encephalopathy Code(s): K72.90 - HEPATIC FAILURE, UNSPECIFIED WITHOUT COMA Current Visit: Yes Status: Acute (5) Hepatocellular carcinoma Code(s): C22.0 - LIVER CELL CARCINOMA Current Visit: Yes Status: Acute (6) COPD (chronic obstructive pulmonary disease) Current Visit: No Status: Chronic (7) Cirrhosis Code(s): K74.60 - UNSPECIFIED CIRRHOSIS OF LIVER Current Visit: No Status: Chronic Qualifiers: Hepatic cirrhosis type: alcoholic cirrhosis Ascites presence: without ascites Qualified Code(s): K70.30 - Alcoholic cirrhosis of liver without ascites - Plan/Recommendations Plan: Lengthy conversation with patient , she gave recent review of history. States patient agreed to initial round of chemo, however states he does not want to feel "sick". Has drank heavily in the past, states he has decreased his alcohol intake since June but drank with the of his father and another recent episode. initiated conversation of hospice, states he wants to at home. She relayed that if needed and disease trajectory was life limiting he would want to go home. Palliative Care will follow up 11/28 for assistance of advance directives and family support. [60] minutes spent on this encounter with >50% of the time in counseling and coordination of care. Thank you for this very appropriate consult.
--- NOTE | 2018-11-27 15:32 | ULT ---
Ultrasound-guided paracentesis: HISTORY: Cirrhosis and ascites. Diagnostic as well as therapeutic paracentesis was requested. FINDINGS: Informed consent obtained prior to the procedure. Preprocedural imaging demonstrated intrap eritoneal free fluid. An area was marked in the right upper quadrant, and then meticulously prepped and draped in normal st erile fashion and anesthetized with 1% buffered lidocaine. With direct sonographic guidance, a 25-gauge needle was advanced into the abdomen. Approximately 10 m L of clear yellow fluid was aspirated. Hemostasis was achieved with direct pressure. A dry sterile dressing was placed. The patient tolerated the procedure well and without immediate complication. IMPRESSION: Technically successful ultrasound-guided paracentesis. Only a small amount of ascites is present with in the right upper quadrant. As result, only a small amount of fluid was aspirated for diagnostic purposes.
[2018-11-27 15:33] LABS: RBC Count-Automated (BF) 140 /cumm; WBC/Nucleated-Auto (BF) 162 uL
[2018-11-27 15:35] LABS: BF Color Yellow; Body Fluid Source Paracentesis Fluid; Clarity Cloudy/Turbid (Clear); Tube # EDTA
[2018-11-27 16:12] LABS: Cell Count Non Hematic 79 %; Lymphocytes 21 %
[2018-11-27] MEDS: cefTRIAXone\\ROCEPHIN 2 GM in Sodium Chloride 0.9% 100 ML IVPB SCH (17:58)
[2018-11-27] MEDS: Haloperidol 5 MG TAB PO PRN ×2 (21:13→21:19)
[2018-11-27] MEDS ORDERED: Haloperidol Lactate 5 MG/ML VIAL IM PRN (21:40)
--- NOTE | 2018-11-27 22:56 | CON ---
DATE OF CONSULTATION: REASON FOR CONSULT: Cholangiocarcinoma. HISTORY OF PRESENT ILLNESS: Mr. 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 He received his first cycle of gemcitabine and cisplatin on Monday of last week. Over the weekend, he began to have some confusion. On Monday morning, he was difficult to arouse, so the patient was brought to the emergency room for evaluation. In the emergency room, he had some elevated LFTs, but his ammonia was 49. He was admitted to the ICU for altered mental status. Repeat ammonia value earlier this morning was mildly elevated. He was started on lactulose and he has become more responsive, although he remains combative. His WBCs were low on admission at 2.6, that recovered to 7.7, his platelets are low at 47,000, but his baseline is 80 to 90,000. The patient has not had a drink per his in the last 3 weeks. No drug use. He was seen at bedside with present. PAST MEDICAL HISTORY: 1. Recently diagnosed adenocarcinoma consistent with cholangiocarcinoma. 2. History of cirrhosis. 3. Hepatitis C. 4. History of alcoholism. 5. History of tobacco use. 6. Arthritis. 7. COPD. PAST SURGICAL HISTORY: Liver biopsy. ALLERGIES: NO KNOWN DRUG ALLERGIES. HOME MEDICATIONS: 1. Flomax. 2. Spironolactone. 3. Prilosec. 4. Lactulose. 5. Furosemide. 6. Compazine. 7. Advair. FAMILY HISTORY: Noncontributory. SOCIAL HISTORY: , has 2 children, lives with his spouse, [id number] history of smoking. Alcohol consumption, quit 3 weeks ago. REVIEW OF SYSTEMS: Unable to obtain secondary to altered mental status. PHYSICAL EXAMINATION: VITAL SIGNS: Temperature is 98.9, pulse is 88, respiratory rate is 14, and blood pressure is 112/58. He is 100% on room air. GENERAL: A well-developed, well-nourished male, in no acute distress. HEENT: Normocephalic and atraumatic. Pupils are equal and reactive to light. NECK: Supple. CV: Regular rate and rhythm. LUNGS: Clear anteriorly. ABDOMEN: Distended. Bowel sounds are positive. EXTREMITIES: No clubbing or cyanosis. SKIN: Jaundiced. HEMATOLOGICAL: No petechiae or purpura. NEUROLOGICAL: He is confused and does not follow commands. PERTINENT LABS AND X-RAYS: Current WBCs are 7.7, hemoglobin is 12.3, hematocrit is 33.4, platelet count is 58,000, 76% neutrophils, and 13% lymphocytes. PT is 17.4, INR is 1.4, and PTT is 29.2. Sodium is 131, potassium is 4.4, chloride is 98, CO2 is 25, BUN is 28, creatinine is 1.33, calcium is 9.3. Bilirubin is 8.8, AST is 69, ALT is 57, and ammonia is 79. Serum total protein is 7.3, albumin is 2.8, and globulin is 4.5. Brain CT was negative for acute process. Chest x-ray showed no acute finding. ASSESSMENT: 1. Adenocarcinoma of the liver consistent with cholangiocarcinoma. 2. History of cirrhosis and hepatitis B. 3. Toxic metabolic encephalopathy, likely secondary to elevated ammonia and liver disease. DISCUSSION: The patient has been started on lactulose with improvement in his mentation. He still is confused, but responsive at this time. Palliative Care has seen the patient and spouse. He is a do not resuscitate status. The patient has understood that this is palliative treatment and we have discussed hospice in the past. We will have his discussion again prior to his second cycle. We will provide supportive care and will follow his hospital course. Thank you for the consult. Job ID: [id number]
[2018-11-27] MEDS: Morphine 2 MG/ML SYRINGE SLOW IVP PRN (23:09)
[2018-11-27] MEDS ORDERED: Diazepam 5 MG TAB PO PRN (23:27)
[2018-11-27] MEDS ORDERED: Lorazepam 2 MG/ML VIAL SLOW IVP SCH (23:30)
--- NOTE | 2018-11-28 00:44 | CON ---
DATE OF CONSULTATION: 11/27/2018 REASON FOR CONSULTATION: Cirrhosis, ascites, altered mental status, possible hepatic encephalopathy. CONSULTING PROVIDER: Johanny Villalobos DO HISTORY OF PRESENT ILLNESS: The patient is a 63-year-old male with past medical history of chronic hepatitis C infection, alcohol dependence, alcohol-induced cirrhosis, and recent diagnosis of cholangiocarcinoma, who presented to the ER with increasing weakness and somnolence. The patient was seen earlier this year in the outpatient setting with imaging concerning for the presence of possible metastatic versus hepatocellular carcinoma in light of worsening liver function and cirrhosis of the liver (cirrhotic morphology on imaging). He underwent an extensive workup including EGD, colonoscopy, labs and imaging ultimately with no evidence of a primary malignancy within the upper or lower GI tract, though with imaging more consistent with hepatocellular carcinoma. He was ultimately transferred to the [facility] in [place] for further evaluation and treatment. As part of that treatment, he was ultimately started on chemotherapy with cisplatin and Gemzar this last Monday. He initially handled the chemotherapy regimen well, but then began to have headache and diffuse tremor on with progressive worsening of somnolence/lethargy as well as inability to ambulate effectively. This was then shortly followed by altered mental status, and with the worsening constellation of symptoms, he was ultimately brought to the [facility] ER for further evaluation. In the ER, he was noted to be somnolent and not able to contribute much to the interview. During the course of this hospitalization, he has progressively had worsening of his encephalopathy being very somnolent on examination today and was not able to contribute any meaningful response to questioning nor was he able to wake up long enough in order to respond to questioning. He is however able to respond to noxious stimuli. At this point in time, the patient is unable to contribute to a meaningful review of systems. Per chart review, the patient did have a history of extensive alcohol abuse and has been drinking alcohol since his diagnosis of cirrhosis and malignancy within the liver. He does have a history of portal hypertensive gastropathy with no evidence of esophageal varices on upper endoscopy nor any other complicating factors including hepatic encephalopathy prior to this hospitalization, although he has had ascites and lower extremity edema, for which he was on diuretic management as an outpatient. REVIEW OF SYSTEMS: A 10-category review of systems is unable to be obtained due to the patient's somnolence and altered mental status. PAST MEDICAL HISTORY: As per HPI. PAST SURGICAL HISTORY: Cardiac catheterization x2 without evidence of significant coronary artery disease. FAMILY HISTORY: No mention of GI malignancies in the chart. SOCIAL HISTORY: Extensive drinking history, drinking approximately 1 pint of liquor daily in addition to 6 beers daily for many years; however, the patient has not had any alcohol for at least the last 2 weeks. No mention of tobacco or illicit drug use. However, the patient's drug of abuse screen was positive for marijuana. OUTPATIENT MEDICATIONS: Reviewed. ALLERGIES: NO KNOWN DRUG ALLERGIES. PHYSICAL EXAMINATION: VITAL SIGNS: Temperature 98.9, pulse 88, blood pressure 112/58, respiratory rate 14, and saturating 100% on room air. GENERAL: The patient was lying in bed, in no acute distress; however, he was unable to contribute to meaningful responses to interview and is not alert or oriented at this time. HEENT: Normocephalic and atraumatic. NECK: Supple. No JVD or scleral icterus noted. CARDIOVASCULAR: Regular rate and rhythm with no discernible murmurs, gallops or rubs. RESPIRATORY: Limited exam due to the patient's altered mental status and inability to move with clear to auscultation bilaterally in all lung scott. No discernible wheezes or rales. ABDOMEN: Normoactive bowel sounds. Soft. Moderate abdominal distention with increased groaning to palpation in all abdominal quadrants. EXTREMITIES: 1+ bilateral lower extremity edema extending to mid champion. LABORATORY DATA: CBC with a white blood cell count of 7.7, hemoglobin 12.3, hematocrit 33.4, and platelets 58. INR 1.4. Chemistry with a sodium of 131, potassium 4.4, chloride 98, CO2 of 25, BUN 28, creatinine 1.33. AST 69, ALT 57, alkaline phosphatase 105, total bilirubin 8.8, and albumin 2.8. Calculated MELD score of 25. Blood cultures negative x2. Ascites culture negative x2. Paracentesis fluid not indicative of spontaneous bacterial peritonitis. IMAGING DATA: CT of the brain was obtained on November 26, 2018, which showed no acute intracranial abnormalities with no evidence of cerebral edema or mass effect/midline shift. Chest x-ray obtained on November 27, 2018, also did not show any acute findings. ASSESSMENT AND PLAN: The patient is a 63-year-old male with past medical history of chronic hepatitis C infection, alcohol dependence with cirrhosis complicated by ascites and lower extremity edema in addition to cholangiocarcinoma, presenting with altered mental status. Altered mental status: The patient was diagnosed with cirrhosis earlier this year with numerous hypodense lesions scattered throughout the liver. CT and MRI imaging modalities were obtained with the imaging most consistent with hepatocellular carcinoma and elevated AFP was also noted making this a more likely diagnosis. He was ultimately transferred to the [facility] for further management and care (no records available for review at this time) and ultimately diagnosed with cholangiocarcinoma. He was ultimately started on chemotherapy including cisplatin and Gemzar this last Monday, and in the post chemotherapy period, he began to experience increasing agitation, somnolence, lethargy, and ataxia. This has ultimately resulted in significant change in his mental status, now being no longer alert and only responsive to noxious stimuli. On admission here, he was noted to have a mildly elevated BUN, for which uremia could potentially cause altered mental status, but usually not to this degree given the mild elevation noted on labs. He does have a mildly elevated ammonia and history of cirrhosis, making hepatic encephalopathy within the differential. Infection has also been entertained, but there is no evidence of SBP nor evidence of bacteremia on current microbiology. Differential diagnosis could also include electrolyte abnormalities (hypercalcemia versus hypomagnesemia), Wernicke encephalopathy (especially given his alcohol dependence in the past and recent alcohol use), decreased metabolism of chemotherapy medications due to impaired hepatic function. Recommendations: 1. We would continue lactulose 30 g q.i.d. rectally as you are doing, although based on his current clinical findings, hepatic encephalopathy is less likely. 2. We would discontinue diuretics at this time as they could contribute to altered mental status. 3. We will start the patient on thiamine IV for possible Wernicke encephalopathy. 4. We will obtain a magnesium level in the morning for possible hypomagnesemia contributing to altered mental status, especially in light of recent chemotherapy use. 5. We would consult Oncology Service for further recommendations regarding altered mental status in the post chemotherapy setting. Cirrhosis. The patient is presenting with a history of cirrhosis with cirrhotic morphology on imaging, thrombocytopenia, mildly elevated INR, and findings of portal hypertension (ascites and portal hypertensive gastropathy). At this time, the most likely etiology would be either chronic hepatitis C infection versus chronic alcoholism or combination of the 2. Currently, he is presenting with decompensated disease with a current MELD score of 25 and a Child-Burns classification C. He does also have mildly elevated LFTs on laboratory testing as well as a significant increase in his total bilirubin today concerning for hepatic inflammation and/or impending hepatic failure. At this point given his tenuous hepatic function prior to chemotherapy , it may be the chemotherapy contributing to further hepatic dysfunction, although it could also be an extension of his worsening liver failure. Recommendations 1. We would continue to trend his LFTs daily as well as INR for evaluation of worsening hepatic function. 2. We would discontinue his diuretic management at least for right now given his altered mental status, mild lower extremity edema, and very little ascites on ultrasound today. Given his cirrhosis and evidence of hepatocellular carcinoma on imaging, palliative care consult is not unreasonable. We will continue to follow. Please call with any questions. Job ID: [id number] MARGUERITE
[2018-11-28] MEDS: Morphine 2 MG/ML SYRINGE SLOW IVP PRN ×3 (02:54→23:13)
[2018-11-28 04:00] LABS: INR-International Normal Ratio 1.5; Prothrombin Time 18.3 SEC (12.0-14.7)
[2018-11-28] MEDS ORDERED: Diazepam 5 MG TAB PO PRN (04:00)
[2018-11-28 04:01] LABS: #Eosinphils 0.3 thou/uL (0.0-0.7); #Lymphocytes 0.9 thou/uL (1.20-3.40); #Monocytes 0.5 thou/uL (0.11-0.59); #Neutrophils 5.4 thou/uL (1.40-6.50); %Basophils 0.4 % (0.0-1.0); %Eosinophils 4.2 % (0.0-10.0); %Lymphocytes 12.1 % (21.0-51.0); %Monocytes 7.4 % (0.0-10.0); %Neutrophils 75.9 % (42.0-75.0); Hemoglobin 9.7 g/dL (14.0-18.0); Mean Corpuscular HGB CONC 36.4 g/dL (32.0-36.0); Mean Corpuscular Hemoglobin 36.9 pg (27.0-31.0); Mean Platelet Volume 7.6 fL (7.4-10.4); PTT 31.5 SEC (22.9-36.1); Platelet Count 30 thou/uL (130-400); RBC Distribution Width 14.3 % (11.5-14.5); Red Blood Cell (RBC) Count 2.61 mill/uL (4.70-6.10); White Blood Cell (WBC) Count 7.1 thou/uL (4.8-10.8)
[2018-11-28 04:17] LABS: ALT (SGPT) 42 U/L (8-55); AST (SGOT) 63 U/L (5-34); Albumin 2.3 g/dL (3.4-4.8); Alkaline Phosphatase 88 U/L (40-110); Anion Gap 11 mmol/L (10-20); BUN (Urea Nitrogen) 29 mg/dL (8.4-25.7); Bilirubin, Total 8.7 mg/dL (0.2-1.2); Calc. Creatinine Clearance 98 mL/min (70-130); Carbon Dioxide 26 mmol/L (23-31); Chloride 100 mmol/L (98-107); Estimated GFR-MDRD 65; Globulin 3.8 g/dL (2.4-3.5); Glucose 96 mg/dL (80-115); Magnesium 1.5 mg/dL (1.6-2.6); Potassium 3.7 mmol/L (3.5-5.1); Protein, Total 6.1 g/dL (5.8-8.1); Sodium 133 mmol/L (136-145)
--- NOTE | 2018-11-28 05:54 | PDOC.FM ---
- Subjective Subjective: Pt had an episode of agitation overnight, removing his rectal tube. He has since not had any BM's. Pt was given one time dose of Ativan and morphine. This relieved his agitation. vitals stable. - Objective MAR Reviewed: Yes Vital Signs & Weight: Vital Signs (12 hours) Temp Pulse Resp BP BP Pulse Ox 11/28/18 04:28 98.2 F 106 H 16 124/79 98 11/27/18 19:16 98.0 F 87 20 113/61 100 Weight Weight 105.8 kg Most Recent Monitor Data Heart Rate from ECG 92 NIBP 127/78 NIBP BP-Mean 94 Respiration from ECG 16 SpO2 100 I&O: 11/26/18 11/27/18 11/28/18 06:59 06:59 06:59 Intake Total 0 Output Total 400 Balance -400 Result Diagrams: 11/28/18 16:17 11/28/18 03:47 Phys Exam - Physical Examination somnolent. HEENT: PERRLA, moist MMs scleral icterus Neck: no nodes, supple Respiratory: no wheezing, clear to auscultation bilateral Cardiovascular: RRR, no significant murmur, no rub distant heart sounds. Gastrointestinal: soft, no distention, positive bowel sounds withdrawals from palpation to abdomen. Musculoskeletal: pulses present, edema present (2+ LE pitting edema present B) Neurological: moves all 4 limbs Skin: no rash, normal turgor, cap refill <2 seconds Deviation from normal: Jaundice skin. Spider angiomas. Henderson erythema. Dx/Plan (1) Hepatic encephalopathy Code(s): K72.90 - HEPATIC FAILURE, UNSPECIFIED WITHOUT COMA Status: Acute (2) Cholangiocarcinoma Code(s): C22.1 - INTRAHEPATIC BILE DUCT CARCINOMA Status: Acute (3) Adenocarcinoma Code(s): C80.1 - MALIGNANT (PRIMARY) NEOPLASM, UNSPECIFIED Status: Acute (4) COPD (chronic obstructive pulmonary disease) Status: Chronic (5) Leukopenia Code(s): D72.819 - DECREASED WHITE BLOOD CELL COUNT, UNSPECIFIED Status: Resolved (6) Alcoholic cirrhosis of liver with ascites Code(s): K70.31 - ALCOHOLIC CIRRHOSIS OF LIVER WITH ASCITES Status: Acute (7) Hepatocellular carcinoma Code(s): C22.0 - LIVER CELL CARCINOMA Status: Acute - Plan Plan: 63 y/o M admitted to [facility] for treatment and evaluation of Hepatic Encephalopathy. 1. Hepatic Encephalopathy 2/2 alcoholic cirrhosis - Ammonia 48--> 79--> 74, Bili 5.0--> 8.8--> 8.7, INR 1.5 --> 1.4--> 1.5 - MELD score: 25, Child-Burns Classification C - Trend Ammonia, INR, CBC, and CMP - GI consulted, Dr. Anthony: recommends trending LFT's and INR. Continue Lacutlose , Discontinue furosemide. - Paracentesis done 11/27: cloudy, WBC 162, RBC 140, lymphocytes 21%, no organisms seen on gram stain. - Rocephin therapy started 2 G Q24H 11/27 for possible SBP. WBC 2.6-->7.7--> 9.7. Tender abdomen 11/27. - Procal 0.21--> 0.29 --> 0.28. - Lactulose 30 gm QID, per rectum, as pt is encephalopathic. - BM's overnight: none. 2. Alcoholic Cirrhosis - Continue home medications of Spironolactone - ASE protocol initiated - Caution with Ativan PRN 3. Cholangiocarcinoma, HCC, and Adenocarcinoma - Oncologist, Dr. Mike consulted. Appreciate recs. - Pt had Cisplastin and Gemzan started first protocol last Monday11/20/18. - Onc Agrees with palliative consult at this time. - Onc agrees to continue lactulose therapy. 4. Acute Kidney injury, improving - Most likely due to decreased PO intake over past couple of days; dehydration. - given 1 L NS in ED. - Ordered another 1 L LR bolus - Cr. 1.43--> 1.33--> 1.13 - Trend CMP 5. Leukocytosis, improved - WBC 2.6--> 7.7 --> 9.7 - Trend CBC - Ordered Procal and blood cultures. - Procal 0.21--> 0.29 --> 0.28 - Blood ccx no growth to date. 6. Hx of Hepatitis C - s/p interferon therapy, in - Still has chronic disease 7. Hx of COPD - continue home advair diskus MARK and proair PRN once mentation allows. - Duonebs PRN 8. Hx of BPH - Continue home medication of tamsulosin Code Status: via next of kin/ expressing patient's known wishes, DNR-DNI DVT ppx: SCD's Diet: NPO Dispo: Admitted to inpatient medical. Stable. Hospice and Palliative care consulted and meeting with family. Addendum - Attending - Attending Attestation Date/Time: 11/28/18 1038 I personally evaluated the patient and discussed the management with Dr. Villalobos. I agree with the History, Examination, Assessment and Plan documented above with any addition or exceptions noted below. Pt is still encephalopathic. Ammonia essentially unchanged. Pt pulled out rectal tube and is unable to get lactulose as he cannot take it by mouth due to somnolence. Abdominal tenderness appears improved. Thrombocytopenia is worsened. We discussed the severity of the patient's condition and that if we continue to see a decline overall condition hospice would be appropriate. Pt's voiced understanding and we will discuss this again tomorrow. She voiced that he would want to go home.
[2018-11-28] MEDS: Mometasone/Formoterol 120 PUFF INHALER INH SCH ×2 (08:27→18:30)
[2018-11-28] MEDS ORDERED: Furosemide 20 MG/2 ML VIAL SLOW IVP SCH (09:00)
[2018-11-28] MEDS ORDERED: FLU VACC TS2019-20(65YR UP)/PF 180 MCG/0.5 ML SYRINGE IM ONE (09:00)
--- NOTE | 2018-11-28 09:06 | PDOC.BPN ---
- Brief Progress Note Dr. Suh recommends the possible differential of Wernicke Encephalopathy, electrolyte abnormalities or decreased metabolism of chemotherapy agents as possible source for encephalopathy. Replacing Magnesium and monitoring for electrolyte abnormalities. Started Thiamine. Dr. Suh does not think the patient has hepatic encephalopathy, but wants to continue lactulose while making new adjustments to therapy. Discontinued Lasix therapy, as this could be contributing to electrolyte abnormalities.
--- NOTE | 2018-11-28 10:35 | PRG ---
DATE OF SERVICE: 11/28/2018 SUBJECTIVE: Sonny Tellez was transferred to the Oncology floor yesterday. He remains encephalopathic, but appears to be in no respiratory distress. OBJECTIVE: VITAL SIGNS: Saturations are 97% on room air, temperature 97, pulse 100, respiratory rate 16, blood pressure 120\74 GENERAL: Appears to be slightly more jaundiced. CHEST: Decreased breath sounds. No wheezing. CARDIAC: Normal S1 and S2. No gallops. ABDOMEN: Distended and soft. ASSESSMENT AND PLAN: Metastatic carcinoma, GI, liver, status post paracentesis. He is a DNR. He has significant encephalopathy. Comfort care. I agree with DNR status. Pulmonary Critical Care will follow at a distance. Job ID: [id number] MTDD
--- NOTE | 2018-11-28 10:36 | PDOC.MOPN ---
Interval History: somnolent, at bedside. - Vital Signs Vital Signs: Vital Signs (12 hours) Temp Pulse Resp BP BP Pulse Ox 11/28/18 08:25 92 18 11/28/18 08:00 97.7 F 82 16 114/62 97 11/28/18 04:28 98.2 F 106 H 16 124/79 98 Weight Weight 233 lb 3.985 oz Most Recent Monitor Data Heart Rate from ECG 92 NIBP 127/78 NIBP BP-Mean 94 Respiration from ECG 16 SpO2 100 - Physical Exam General: No acute distress HEENT: Atraumatic Lungs: Clear to auscultation, Normal air movement Cardiovascular: Regular rate, Normal S1, Normal S2, No murmurs, Gallops, Rubs Abdomen: Normal bowel sounds Extremities: No clubbing, No cyanosis, No edema, Normal pulses, No tenderness/ swelling Skin: No rashes, No breakdown, No significant lesion Neurological: Other (encephalopathic) - Labs Result Diagrams: 11/28/18 03:47 11/28/18 03:47 Lab results: Laboratory Results - last 24 hr 11/28/18 03:47: Procalcitonin 0.28 11/28/18 03:47: PT 18.3 H, INR 1.5, APTT 31.5 11/28/18 03:47: Sodium 133 L, Potassium 3.7, Chloride 100, Carbon Dioxide 26, Anion Gap 11, BUN 29 H, Creatinine 1.13, Estimated GFR (MDRD) 65, Glucose 96, Calcium 9.0, Magnesium 1.5 L, Total Bilirubin 8.7 H, AST 63 H, ALT 42, Alkaline Phosphatase 88, Serum Total Protein 6.1, Albumin 2.3 L, Globulin 3.8 H, Albumin/ Globulin Ratio 0.6 L 11/28/18 03:47: WBC 7.1, RBC 2.61 L, Hgb 9.7 L, Hct 26.5 L, MCV 101.0 H, MCH 36.9 H, MCHC 36.4 H, RDW 14.3, Plt Count 30 L, MPV 7.6, Neutrophils % 75.9 H, Lymphocytes % 12.1 L, Monocytes % 7.4, Eosinophils % 4.2, Basophils % 0.4, Neutrophils # 5.4, Lymphocytes # 0.9 L, Monocytes # 0.5, Eosinophils # 0.3, Basophils # 0.0 11/28/18 03:47: Ammonia 74 H 11/27/18 14:50: Fluid Source Paracentesis Fluid, Fluid Tube Number EDTA, Fluid Color Yellow, Fluid Clarity Cloudy/Turbid H, Fluid WBC 162, Fluid RBC 140, Fluid Seg Neutrophil % Not Reportable, Fluid Lymphocytes % 21, Non- Hematological % 79, Fluid Comment Note: Status: lab reviewed by me A/P - Problem (1) Adenocarcinoma Current Visit: Yes Code(s): C80.1 - MALIGNANT (PRIMARY) NEOPLASM, UNSPECIFIED Status: Acute (2) Alcoholic cirrhosis of liver with ascites Current Visit: Yes Code(s): K70.31 - ALCOHOLIC CIRRHOSIS OF LIVER WITH ASCITES Status: Acute (3) Cholangiocarcinoma Current Visit: Yes Code(s): C22.1 - INTRAHEPATIC BILE DUCT CARCINOMA Status : Acute (4) Hepatic encephalopathy Current Visit: Yes Code(s): K72.90 - HEPATIC FAILURE, UNSPECIFIED WITHOUT COMA Status: Acute - Plan Plan: Continue lactulose enemas palliative care seeing patient. Discussed treatment vs hospice with .
[2018-11-28] MEDS: Magnesium Oxide 400 MG TAB PO SCH (10:49)
[2018-11-28] MEDS: Multivitamin W/ Minerals 1 TAB PO SCH (10:49)
[2018-11-28] MEDS: Tamsulosin HCl 0.4 MG CAP PO SCH (10:49)
[2018-11-28] MEDS: Folic Acid 1 MG TAB PO SCH (10:49)
[2018-11-28 12:54] LABS: Phosphorus 3.8 mg/dL (2.3-4.7)
--- NOTE | 2018-11-28 15:35 | PRG ---
DATE OF SERVICE: 11/28/2018 REASON FOR CONSULTATION: Altered mental status, cirrhosis, hepatic encephalopathy. SUBJECTIVE: Per nursing staff, there is no acute events or problems overnight, although he did exhibit some increased agitation by attempting to get out of bed and pulling on some lines, but none were successfully removed. Otherwise, he was somnolent for most of the night. A bowel management system was placed given the frequent administration of lactulose enemas. Otherwise, there were no episodes of nausea, vomiting, fevers, hematemesis, melena, or hematochezia. He does grimace to some manipulation when moved, but otherwise is relatively unchanged. I does discussed his current clinical condition with his this morning, who realizes that treatment for this particular condition may not generate a full recovery or could potentially worsen his clinical status and is understanding of the current clinical situation. OBJECTIVE: VITAL SIGNS: Temperature 97.7, pulse 92, blood pressure 114/62, respiratory rate 18, saturating 97% on room air. GENERAL: The patient was lying in bed, in no acute distress. The patient was not alert nor able to interact during the course of this conversation, although he did open his eyes to command. CARDIOVASCULAR: Regular rate and rhythm with no discernible murmurs, gallops, or rubs. RESPIRATORY: Clear to auscultation bilaterally. ABDOMEN: Normoactive bowel sounds. Soft. Mild abdominal distention. Mild tenderness to palpation in all abdominal quadrants (improved from yesterday). EXTREMITIES: 1+ bilateral lower extremity edema extending to mid-champion. LABORATORY DATA: CBC with a white blood cell count of 7.1, hemoglobin 9.7, hematocrit 26.5, platelets 30. INR 1.5. Chemistry with a sodium of 133, potassium 3.7, chloride 100, CO2 of 26, BUN 29, creatinine 1.13, glucose 96. AST 63, ALT 42, alkaline phosphatase 88, total bilirubin 8.7, albumin 2.3, magnesium 1.5. Calculated MELD score of 24. IMAGING DATA: No current GI imaging is available for review. ASSESSMENT AND PLAN: The patient is a 63-year-old male with past medical history of chronic hepatitis C infection, alcohol dependence with resultant cirrhosis and complicated by ascites and lower extremity edema in addition to recent diagnosis of cholangiocarcinoma, status post one round of chemotherapy, presenting with altered mental status. Altered mental status. The patient is presenting with slow worsening of his altered mental status since undergoing chemotherapy approximately 1 week ago, and per discussion with his , initially was disorientation at night that progressed to inability to recognize family members, irritability, ultimately somnolence, and unarousability. During this admission, he has continued to maintain the same being very somnolent and unable to contribute meaningful information to interview, although he is now responding to verbal stimuli, which may be a marker of improvement (although it is unclear it may be too soon to say at this time). Current differential could include electrolyte abnormalities with hypomagnesemia being replaced at this time, working encephalopathy, worsening liver failure, or decreased metabolism chemotherapy medications due to impaired hepatic function. RECOMMENDATIONS: 1. Would continue with the lactulose 4 times daily as you are doing and reassessing daily for improving clinical status. 2. Would discontinue his diuretics at this time as they could contribute altered mental status and currently has minimal lower extremity edema or ascites. 3. Continue thiamine supplementation. 4. Replace electrolytes as needed. 5. Cirrhosis. 6. The patient is presenting with a history of cirrhosis with cirrhotic morphology on imaging, thrombocytopenia, elevated INR, and findings of portal hypertension (ascites and portal hypertensive gastropathy on upper endoscopy). At this time, the most likely etiology would be either chronic hepatitis C infection versus chronic alcoholism or combination of the two. Currently presenting with decompensated disease with a current MELD score of 24. Given his significantly elevated total bilirubin within the last week, it could be secondary to administration of chemotherapy further contributing to hepatic dysfunction and with his altered mental status may be a harbinger of worsening liver failure. 7. Would continue to trend his LFTs daily as well as INR for evaluation of worsening hepatic function. If the patient is not clinically improving within the next 24 to 48 hours, could consider discharge the patient to home hospice care. 8. We will continue to follow. Please call with any questions. Job ID: [id number]
[2018-11-28 16:38] LABS: Hemoglobin 10.2 g/dL (14.0-18.0); Mean Corpuscular HGB CONC 37.2 g/dL (32.0-36.0); Mean Corpuscular Hemoglobin 37.2 pg (27.0-31.0); Mean Corpuscular Volume 99.9 fL (78.0-98.0); Mean Platelet Volume 7.9 fL (7.4-10.4); Platelet Count 22 thou/uL (130-400); RBC Distribution Width 14.4 % (11.5-14.5); Red Blood Cell (RBC) Count 2.75 mill/uL (4.70-6.10); White Blood Cell (WBC) Count 7.3 thou/uL (4.8-10.8)
[2018-11-28] MEDS: cefTRIAXone\\ROCEPHIN 2 GM in Sodium Chloride 0.9% 100 ML IVPB SCH (18:34)
[2018-11-28] MEDS: Pantoprazole 40 MG VIAL IVP SCH (20:57)
[2018-11-29 04:49] LABS: INR-International Normal Ratio 1.5; PTT 31.1 SEC (22.9-36.1)
[2018-11-29 05:06] LABS: ALT (SGPT) 41 U/L (8-55); AST (SGOT) 66 U/L (5-34); Albumin 2.3 g/dL (3.4-4.8); Alkaline Phosphatase 87 U/L (40-110); Anion Gap 11 mmol/L (10-20); BUN (Urea Nitrogen) 27 mg/dL (8.4-25.7); Bilirubin, Total 7.6 mg/dL (0.2-1.2); Calc. Creatinine Clearance 108 mL/min (70-130); Carbon Dioxide 25 mmol/L (23-31); Chloride 101 mmol/L (98-107); Estimated GFR-MDRD 73; Globulin 3.9 g/dL (2.4-3.5); Glucose 97 mg/dL (80-115); Potassium 3.7 mmol/L (3.5-5.1); Protein, Total 6.2 g/dL (5.8-8.1); Sodium 133 mmol/L (136-145)
[2018-11-29 05:19] LABS: #Eosinphils 0.4 thou/uL (0.0-0.7); #Lymphocytes 0.9 thou/uL (1.20-3.40); #Monocytes 0.7 thou/uL (0.11-0.59); #Neutrophils 6.5 thou/uL (1.40-6.50); %Basophils 0.2 % (0.0-1.0); %Eosinophils 4.8 % (0.0-10.0); %Lymphocytes 10.2 % (21.0-51.0); %Monocytes 8.7 % (0.0-10.0); %Neutrophils 76.1 % (42.0-75.0); Hemoglobin 10.1 g/dL (14.0-18.0); Mean Corpuscular HGB CONC 37.5 g/dL (32.0-36.0); Mean Corpuscular Hemoglobin 37.2 pg (27.0-31.0); Mean Corpuscular Volume 99.2 fL (78.0-98.0); Mean Platelet Volume 7.6 fL (7.4-10.4); Platelet Count 28 thou/uL (130-400); RBC Distribution Width 14.9 % (11.5-14.5); Red Blood Cell (RBC) Count 2.72 mill/uL (4.70-6.10); White Blood Cell (WBC) Count 8.5 thou/uL (4.8-10.8)
[2018-11-29] MEDS: Morphine 2 MG/ML SYRINGE SLOW IVP PRN ×3 (05:30→21:41)
--- NOTE | 2018-11-29 06:24 | PDOC.FM ---
- Subjective Subjective: BM X2 overnight. Woke up this morning asking for pain medication. Was able to verbalize his discomfort to the nurse. Hgb stable at 10.1, Plt 27. Ammonia decreased to 52. - Objective Vital Signs & Weight: Vital Signs (12 hours) Temp Pulse Resp BP Pulse Ox 11/29/18 03:29 97.7 F 91 16 114/62 99 11/28/18 23:38 98.0 F 88 16 119/63 97 11/28/18 20:00 98 11/28/18 19:20 97.8 F 97 16 143/81 H 98 Weight Admit Weight 105.8 kg Weight 105.8 kg Most Recent Monitor Data Heart Rate from ECG 92 NIBP 127/78 NIBP BP-Mean 94 Respiration from ECG 16 SpO2 100 I&O: 11/27/18 11/28/18 11/29/18 06:59 06:59 06:59 Intake Total 0 283 Output Total 400 Balance -400 283 Result Diagrams: 11/29/18 04:22 11/29/18 04:22 Phys Exam - Physical Examination Constitutional: NAD resting comfortbaly in bed. Opens eyes to name. HEENT: PERRLA scleral icterus. Dry MM. Neck: no nodes, no JVD, supple Respiratory: no wheezing, no rales, no rhonchi, clear to auscultation bilateral Cardiovascular: RRR, no rub soft systolic murmur Gastrointestinal: soft, non-tender, no distention, positive bowel sounds Musculoskeletal: pulses present, edema present (trace BLE pitting edema. ) Neurological: moves all 4 limbs Deviation from normal: More awake from prior exams. Skin: no rash, normal turgor, cap refill <2 seconds Deviation from normal: Jaundice skin. Spider angiomas. Henderson erythema. Dx/Plan (1) Hepatic encephalopathy Code(s): K72.90 - HEPATIC FAILURE, UNSPECIFIED WITHOUT COMA Status: Suspected (2) Cholangiocarcinoma Code(s): C22.1 - INTRAHEPATIC BILE DUCT CARCINOMA Status: Acute (3) Adenocarcinoma Code(s): C80.1 - MALIGNANT (PRIMARY) NEOPLASM, UNSPECIFIED Status: Acute (4) COPD (chronic obstructive pulmonary disease) Status: Chronic (5) Leukopenia Code(s): D72.819 - DECREASED WHITE BLOOD CELL COUNT, UNSPECIFIED Status: Resolved (6) Alcoholic cirrhosis of liver with ascites Code(s): K70.31 - ALCOHOLIC CIRRHOSIS OF LIVER WITH ASCITES Status: Acute (7) Hepatocellular carcinoma Code(s): C22.0 - LIVER CELL CARCINOMA Status: Acute - Plan Plan: 63 y/o M admitted to [facility] for treatment and evaluation of Hepatic Encephalopathy. 1. Hepatic Encephalopathy 2/2 alcoholic cirrhosis vs. Wernickes Encephalopathy Vs. Metabolic Encephalopathy - Ammonia 48--> 79--> 74--> 52, Bili 5.0--> 8.8--> 8.7, INR 1.5 --> 1.4--> 1.5 - MELD score: 24, Child-Burns Classification C - Trend Ammonia, INR, CBC, and CMP - GI consulted, Dr. Anthony: recommends trending LFT's and INR. Continue Lacutlose , Discontinue furosemide, and spironolactone. Added Thiamine. Replacing electrolytes. - Paracentesis done 11/27: cloudy, WBC 162, RBC 140, lymphocytes 21%, no organisms seen on gram stain. - Rocephin therapy started 2 G Q24H 11/27 for possible SBP. WBC 2.6-->7.7--> 9.7- -> 8.5. Tender abdomen 11/27, improving. - Procal 0.21--> 0.29 --> 0.28. - Lactulose 30 gm QID, per rectum, as pt is encephalopathic. - BM's overnight: X2 - Giving Mag. Mag level on 11/29 1.6. 2. Alcoholic Cirrhosis - ASE protocol initiated - Caution with Ativan PRN 3. Cholangiocarcinoma, HCC, and Adenocarcinoma - Oncologist, Dr. Mike consulted. Appreciate recs. - Pt had Cisplastin and Gemzan started first protocol last Monday11/20/18. - Onc Agrees with palliative consult at this time. - Onc agrees to continue lactulose therapy. - Palliative care. Will re-evaluate for Hospice care. 4. Acute Kidney injury, improving - Most likely due to decreased PO intake over past couple of days; dehydration. - given 1 L NS in ED. - Ordered another 1 L LR bolus - Cr. 1.43--> 1.33--> 1.13--> 1.02 - Trend CMP - Pt appears slightly dehydrated morning of 11/29, gave bolus 500 mL of LR. Monitor closely. 5. Leukocytosis, improved - WBC 2.6--> 7.7 --> 9.7--> 8.5 - Trend CBC - blood cultures neg. - Procal 0.21--> 0.29 --> 0.28 6. Hx of Chronic Hepatitis C - s/p interferon therapy, in - Still has chronic disease 7. Hx of COPD - continue home advair diskus MARK and proair PRN once mentation allows. - Duonebs PRN 8. Hx of BPH - Continue home medication of tamsulosin if pt can tolerate PO. 9. Thrombocytopenia - Plts 28 11/29. - Have downtrended over hospital stay. - no active bleeding 10. Macrocytic Anemia - Hgb 10.1, MCV 99 - Most likely secondary to Alcoholic Cirrhosis. - FOBT negative. Code Status: via next of kin/ expressing patient's known wishes, DNR-DNI DVT ppx: SCD's Diet: NPO Dispo: Admitted to inpatient medical. Stable. Hospice and Palliative care consulted and meeting with family. Addendum - Attending - Attending Attestation Date/Time: 11/29/18 6033 I personally evaluated the patient and discussed the management with Dr. Villalobos. I agree with the History, Examination, Assessment and Plan documented above with any addition or exceptions noted below. The patient is somnolent this am. Labs minimally improved. Pt's will be speaking with hospice today and likely d/c tomorrow.
[2018-11-29] MEDS: Mometasone/Formoterol 120 PUFF INHALER INH SCH ×2 (07:41→23:34)
[2018-11-29] MEDS ORDERED: Morphine 2 MG/ML SYRINGE SLOW IVP SCH (07:45)
[2018-11-29] MEDS: Folic Acid 1 MG TAB PO SCH (08:28)
[2018-11-29] MEDS: Magnesium Oxide 400 MG TAB PO SCH (08:28)
[2018-11-29] MEDS: Multivitamin W/ Minerals 1 TAB PO SCH (08:29)
[2018-11-29] MEDS ORDERED: Lactated Ringer's 500 ML IV SCH ×2 (08:30→10:15)
[2018-11-29] MEDS: Pantoprazole 40 MG VIAL IVP SCH ×2 (08:35→21:42)
[2018-11-29] MEDS: Tamsulosin HCl 0.4 MG CAP PO SCH (08:39)
[2018-11-29] MEDS: cefTRIAXone\\ROCEPHIN 2 GM in Sodium Chloride 0.9% 100 ML IVPB SCH (17:09)
--- NOTE | 2018-11-29 18:05 | PRG ---
DATE OF SERVICE: 11/29/2018 REASON FOR CONSULTATION: Altered mental status, cirrhosis, hepatic encephalopathy, and cholangiocarcinoma. SUBJECTIVE: Today, the patient was exhibiting more alertness and was able to interact with both family members as well as nursing staff. He was also able to get out of bed and urinate with some assistance this morning. He was able to answer my questions and stated that he was thirsty and wanted something to drink. He does continue to have minimal abdominal pain primarily to palpation, but did not endorse this prior to physical examination. Currently, denies any nausea, vomiting, fevers, chills, or pain. OBJECTIVE: VITAL SIGNS: Temperature 97.7, pulse 91, blood pressure 114/62, respiratory rate 16, and saturating 99% on room air. GENERAL: The patient was lying in bed, in no acute distress, was somnolent, but arousable to verbal stimuli. Alert and oriented x2. CARDIOVASCULAR: Regular rate and rhythm. RESPIRATORY: Clear to auscultation bilaterally. ABDOMEN: Normoactive bowel sounds. Soft. Mild abdominal distention. Mild to moderate tenderness to palpation in all abdominal quadrants (unchanged from yesterday). EXTREMITIES: 1+ bilateral lower extremity edema extending to mid champion. LABORATORY DATA: CBC with a white blood cell count of 8.5, hemoglobin 10.1, hematocrit 27, and platelets 28. INR 1.5. Chemistry with a sodium of 133, potassium 3.7, chloride 101, CO2 of 25, BUN 27, creatinine 1.02, glucose 97, AST 66, ALT 41, alkaline phosphatase 87, total bilirubin 7.6, and calculated MELD score 23. IMAGING DATA: No current GI imaging is available for review. ASSESSMENT AND PLAN: The patient is a 63-year-old male with past medical history of chronic hepatitis C infection, alcohol dependence with resultant cirrhosis and complicated by ascites and lower extremity edema in addition to recent diagnosis of cholangiocarcinoma, presenting with altered mental status. Altered mental status. The patient initially presented with altered mental status, characterized by ataxia and disorientation prior to his admission and shortly after administration of chemotherapy for his cholangiocarcinoma. During the course of this admission, he has slowly improved over the last 48 to 72 hours, and while he continues to be fairly somnolent, he was able to respond to verbal to stimuli and answer simple questions today. At this time, the origin of his altered mental status is most likely multifold with the recent administration of chemotherapy, significant hepatic dysfunction secondary to cirrhosis, and electrolyte abnormalities/vitamin deficiencies that could have potentially contributed to his change in mental status. With more conservative management with lactulose administration, replacement of electrolytes, and replacement of thiamine, he has been having slow improvement in terms of his mental status. Recommendations; 1. We will continue the lactulose, but consider oral administration now that the patient is waking up and may decrease to a target of the patient having 3 to 4 bowel movements per day. 2. Continue thiamine supplementation. 3. Replace electrolytes as needed. Cirrhosis. The patient is presenting with a history of cirrhosis with cirrhotic morphology on imaging, thrombocytopenia, elevated INR, and findings of portal hypertension on recent endoscopy, currently presenting with decompensated disease with a current MELD score of 23, which is downtrending during this admission with the shinto of altered mental status in light of cirrhosis. Initially, it was concerning for worsening of his hepatic failure, but he has been slowly improving over the last 48 hours with more conservative management, which may indicate his liver failure was secondary to chemotherapy and/or decreased metabolism of the chemotherapy agents. Recommendations; 1. We would continue to trend his LFTs and INR daily for evaluation of his hepatic function. 2. Discharging the patient to home hospice care in light of cirrhosis with cholangiocarcinoma is very reasonable at this time. We will continue to follow. Please call with any questions. Job ID: [id number]
[2018-11-29] MEDS: Clindamycin/D5W 600 MG in Premix Bag 1 BAG IVPB SCH (21:48)
[2018-11-30 04:22] LABS: #Eosinphils 0.5 thou/uL (0.0-0.7); #Lymphocytes 1.2 thou/uL (1.20-3.40); #Monocytes 0.8 thou/uL (0.11-0.59); #Neutrophils 8.4 thou/uL (1.40-6.50); %Basophils 0.2 % (0.0-1.0); %Eosinophils 4.8 % (0.0-10.0); %Lymphocytes 10.8 % (21.0-51.0); %Neutrophils 77.2 % (42.0-75.0); Hemoglobin 9.9 g/dL (14.0-18.0); Mean Corpuscular HGB CONC 37.5 g/dL (32.0-36.0); Mean Corpuscular Hemoglobin 37.5 pg (27.0-31.0); Mean Platelet Volume 7.4 fL (7.4-10.4); Platelet Count 29 thou/uL (130-400); RBC Distribution Width 16.4 % (11.5-14.5); Red Blood Cell (RBC) Count 2.63 mill/uL (4.70-6.10); White Blood Cell (WBC) Count 10.8 thou/uL (4.8-10.8)
[2018-11-30 04:26] LABS: INR-International Normal Ratio 1.5; PTT 31.2 SEC (22.9-36.1); Prothrombin Time 18.4 SEC (12.0-14.7)
[2018-11-30 04:33] LABS: ALT (SGPT) 39 U/L (8-55); AST (SGOT) 64 U/L (5-34); Albumin 2.4 g/dL (3.4-4.8); Alkaline Phosphatase 90 U/L (40-110); Anion Gap 11 mmol/L (10-20); BUN (Urea Nitrogen) 26 mg/dL (8.4-25.7); Calc. Creatinine Clearance 96 mL/min (70-130); Calcium 8.8 mg/dL (7.8-10.44); Carbon Dioxide 25 mmol/L (23-31); Chloride 99 mmol/L (98-107); Estimated GFR-MDRD 64; Globulin 3.8 g/dL (2.4-3.5); Glucose 116 mg/dL (80-115); Magnesium 1.6 mg/dL (1.6-2.6); Potassium 3.6 mmol/L (3.5-5.1); Protein, Total 6.2 g/dL (5.8-8.1); Sodium 131 mmol/L (136-145)
[2018-11-30] MEDS: Clindamycin/D5W 600 MG in Premix Bag 1 BAG IVPB SCH (05:16)
--- NOTE | 2018-11-30 05:56 | PDOC.FM ---
- Subjective Subjective: Patient is awake and sitting up this morning, talking to me. He states he wants to go home. Asked the patient if he agreed to hospice care, he said yes. He is eager to go home with his . Patient is still confused but able to drink water now. Drank half a glass of water with me in the room. States his abdomen hurts him slightly. - Objective MAR Reviewed: Yes Vital Signs & Weight: Vital Signs (12 hours) Temp Pulse Resp BP Pulse Ox 11/29/18 20:01 98.4 F 96 18 109/60 94 L 11/29/18 19:50 94 L Weight Admit Weight 105.8 kg Weight 105.8 kg Most Recent Monitor Data Heart Rate from ECG 92 NIBP 127/78 NIBP BP-Mean 94 Respiration from ECG 16 SpO2 100 I&O: 11/28/18 11/29/18 11/30/18 06:59 06:59 06:59 Intake Total 0 283 2280 Output Total 400 2350 Balance -400 283 -70 Result Diagrams: 11/30/18 03:56 11/30/18 03:56 Phys Exam - Physical Examination Constitutional: NAD HEENT: PERRLA, moist MMs scleral icterus Neck: no nodes, supple Respiratory: no wheezing, no rales, no rhonchi, clear to auscultation bilateral Cardiovascular: RRR, no rub Gastrointestinal: soft, no distention, positive bowel sounds slight abdominal tenderness. Musculoskeletal: pulses present, edema present (trace BLE ) Deviation from normal: somnolent, but awakens to speak. Deviation from normal: jaundice skin, spider angiomas, rodriguez erythema. Dx/Plan (1) Hepatic encephalopathy Code(s): K72.90 - HEPATIC FAILURE, UNSPECIFIED WITHOUT COMA Status: Suspected (2) Cholangiocarcinoma Code(s): C22.1 - INTRAHEPATIC BILE DUCT CARCINOMA Status: Acute (3) Adenocarcinoma Code(s): C80.1 - MALIGNANT (PRIMARY) NEOPLASM, UNSPECIFIED Status: Acute (4) COPD (chronic obstructive pulmonary disease) Status: Chronic (5) Alcoholic cirrhosis of liver with ascites Code(s): K70.31 - ALCOHOLIC CIRRHOSIS OF LIVER WITH ASCITES Status: Acute (6) Hepatocellular carcinoma Code(s): C22.0 - LIVER CELL CARCINOMA Status: Acute - Plan Plan: 63 y/o M admitted to [facility] for treatment and evaluation of Hepatic Encephalopathy. 1. Hepatic Encephalopathy 2/2 alcoholic cirrhosis vs. Wernickes Encephalopathy Vs. Metabolic Encephalopathy, improved mentation 11/30 - Ammonia 48--> 79--> 74--> 52--> 61, Bili 5.0--> 8.8--> 8.7-->9.0, INR 1.5 --> 1.4--> 1.5 - MELD score: 25, Child-Burns Classification C - Trend Ammonia, INR, CBC, and CMP - GI consulted, Dr. Anthony: recommends trending LFT's and INR. Continue Lacutlose , Discontinue furosemide, and spironolactone. Added Thiamine. Replacing electrolytes. - Paracentesis done 11/27: cloudy, WBC 162, RBC 140, lymphocytes 21%, no organisms seen on gram stain. - Rocephin therapy started 2 G Q24H 11/27 for possible SBP. WBC 2.6-->7.7--> 9.7- -> 8.5-->10.8. Tender abdomen 11/27, improving. - Procal 0.21--> 0.29 --> 0.28. - Lactulose 30 gm QID, per rectum, as pt is encephalopathic. - BM's overnight: X4 - Giving Mag. Mag level on 11/29 1.6. 2. Alcoholic Cirrhosis - ASE protocol initiated - Caution with Ativan PRN 3. Cholangiocarcinoma, HCC, and Adenocarcinoma - Oncologist, Dr. Mike consulted. Appreciate recs. - Pt had Cisplastin and Gemzan started first protocol last Monday11/20/18. - Onc Agrees with palliative consult at this time. - Onc agrees to continue lactulose therapy. - Palliative care. Will re-evaluate for Hospice care. 4. Acute Kidney injury, improving - Most likely due to decreased PO intake over past couple of days; dehydration. - given 1 L NS in ED. - Ordered another 1 L LR bolus - Cr. 1.43--> 1.33--> 1.13--> 1.02 - Trend CMP - Pt appears slightly dehydrated morning of 11/29, gave bolus 500 mL of LR. Monitor closely. 5. Leukocytosis, improved - WBC 2.6--> 7.7 --> 9.7--> 8.5--> 10.8 - Trend CBC - blood cultures: 02/28 gram + rods. Clindamycin started 11/30. - Procal 0.21--> 0.29 --> 0.28 6. Hx of Chronic Hepatitis C - s/p interferon therapy, in - Still has chronic disease 7. Hx of COPD - continue home advair diskus MARK and proair PRN once mentation allows. - Duonebs PRN 8. Hx of BPH - Continue home medication of tamsulosin if pt can tolerate PO. 9. Thrombocytopenia - Plts 28 11/29. - Have downtrended over hospital stay. - no active bleeding 10. Macrocytic Anemia - Hgb 10.1, MCV 99 - Most likely secondary to Alcoholic Cirrhosis. - FOBT negative. Code Status: via next of kin/ expressing patient's known wishes, DNR-DNI DVT ppx: SCD's Diet: NPO Dispo: Admitted to inpatient medical. Stable. Hospice and Palliative care consulted and meeting with family. Likely D/C home to hospice. Addendum - Attending - Attending Attestation Date/Time: 11/30/18 4433 I personally evaluated the patient and discussed the management with Dr. Villalobos. I agree with the History, Examination, Assessment and Plan documented above with any addition or exceptions noted below. The patient is much more alert. He has expressed that he wants to go home on hospice. Will d/c.
[2018-11-30] MEDS: Mometasone/Formoterol 120 PUFF INHALER INH SCH (06:00)
[2018-11-30 07:37] VITALS: BP 119/70; TEMP 99.3
[2018-11-30] MEDS: Magnesium Oxide 400 MG TAB PO SCH (07:58)
[2018-11-30] MEDS: Folic Acid 1 MG TAB PO SCH (07:58)
[2018-11-30] MEDS: Multivitamin W/ Minerals 1 TAB PO SCH (07:58)
[2018-11-30] MEDS: Tamsulosin HCl 0.4 MG CAP PO SCH (07:58)
[2018-11-30] MEDS: Pantoprazole 40 MG VIAL IVP SCH (08:00)
[2018-11-30] MEDS: Morphine 2 MG/ML SYRINGE SLOW IVP PRN (08:03)
--- NOTE | 2018-11-30 11:31 | PDOC.PALPN ---
Palliative Progress Note - Subjective Sleeping but arousable, denies pain at present, states he is ready "to go home". - Objective Vital Signs: Vital Signs - Most Recent Temp Pulse Resp BP Pulse Ox 99.3 F 92 18 119/70 90 L 11/30/18 07:36 11/30/18 07:36 11/30/18 07:36 11/30/18 07:36 11/30/18 07:36 - Physical Exam Constitutional: confusion HEENT: PERRLA, EOMI Deviation from normal: icteric Respiratory: clear to auscultation bilateral Deviation from normal: mild increase in respirations with minimal exertion, diminished to bases Cardiovascular: RRR Gastrointestinal: soft Deviation from normal: Tender, distended Musculoskeletal: pulses present, edema present Neurological: moves all 4 limbs Deviation from normal: falt affect Deviation from normal: scant brusing in various stages of healing, fair turgor, icteric - Assessment (1) Palliative care encounter Code(s): Z51.5 - ENCOUNTER FOR PALLIATIVE CARE Current Visit: Yes Status: Acute (2) Adenocarcinoma Code(s): C80.1 - MALIGNANT (PRIMARY) NEOPLASM, UNSPECIFIED Current Visit: Yes Status: Acute (3) Alcoholic cirrhosis of liver with ascites Code(s): K70.31 - ALCOHOLIC CIRRHOSIS OF LIVER WITH ASCITES Current Visit: Yes Status: Acute (4) Hepatic encephalopathy Code(s): K72.90 - HEPATIC FAILURE, UNSPECIFIED WITHOUT COMA Current Visit: Yes Status: Suspected (5) Hepatocellular carcinoma Code(s): C22.0 - LIVER CELL CARCINOMA Current Visit: Yes Status: Acute (6) COPD (chronic obstructive pulmonary disease) Current Visit: No Status: Chronic (7) Cirrhosis Code(s): K74.60 - UNSPECIFIED CIRRHOSIS OF LIVER Current Visit: No Status: Chronic Qualifiers: Hepatic cirrhosis type: alcoholic cirrhosis Ascites presence: without ascites Qualified Code(s): K70.30 - Alcoholic cirrhosis of liver without ascites - Plan Plan: Confirmed plan to return home with hospice, patient and spouse goal of care. Reinforced aspiration precautions. Teaching for mouth care/measures to manage dry mucous membranes with use of swab. Will contact hospice for "dry mouth" spray at home. [40] minutes spent on this encounter with >50% of the time in counseling and coordination of care.
--- NOTE | 2018-12-01 00:19 | DIS ---
DATE OF ADMISSION: 11/26/2018 DATE OF DISCHARGE: 11/30/2018 RESIDENT: Johanny Villalobos DO ADMITTING ATTENDING: George Mcdaniels MD. JAMEEL ATTENDING: Dr. Gore CONSULTS: Case Management, Gastroenterology, Oncology, Pulmonology, Hospice, and Palliative Care. PROCEDURES: Paracentesis done on 11/27/2018. DIAGNOSES: 1. Encephalopathy, most likely cause of metabolic encephalopathy versus Wernicke versus hepatic encephalopathy. 2. Alcoholic cirrhosis. 3. Cholangiocarcinoma. 4. Hepatocellular carcinoma. 5. Adenocarcinoma. 6. Acute kidney injury, improved. 7. Leukocytosis, improved. 8. History of chronic hepatitis C. 9. History of chronic obstructive pulmonary disease. 10. BPH. 11. Thrombocytopenia. 12. Macrocytic anemia. DISCONTINUE MEDICATIONS: Spironolactone and furosemide. DISCHARGE MEDICATIONS: 1. ProAir one puff inhaled q.4 hours p.r.n. 2. Advair Diskus one inhaler b.i.d. 3. Folic acid 1 mg daily. 4. Lactulose 30 g p.o. q.i.d. or to titrate to 1-3 bowel movement daily. 5. Magnesium oxide 400 mg p.o. daily. 6. Protonix 40 mg b.i.d. 7. Tamsulosin 0.4 mg daily. 8. Multivitamin one tablet p.o. daily. HISTORY OF PRESENT ILLNESS/HOSPITAL COURSE: Mr. Tellez is a 63-year-old male with a history of cholangiocarcinoma, hepatocellular carcinoma, and adenocarcinoma on top of chronic hepatitis C and alcoholic cirrhosis. The patient had received a chemotherapy protocol treatment on Monday of last week. He slowly declined and became very encephalopathic and somnolent over the weekend, was brought in by his because he was unarousable and confused, striking her, not understanding whom she was. Throughout the hospital course, we gave the patient lactulose for suspected hepatic encephalopathy, although ammonia levels upon admission were 48 , sharita to 79 and were 61 on day of discharge. The patient was also treated for suspected SBP as he had a very low white count of 2.6, originally tachycardic and his white count sharita at discharge of 10.8. He was treated with ceftriaxone 2 g daily while here, discontinued at discharge. The patient's blood culture was 1/ 2 gram-positive rods. He received dose of clindamycin, this was likely contaminant and pt not discharged on any antibiotic. The patient's platelet count also dropped throughout the hospital course, was 29 on day of discharge. The patient was placed on thiamine and magnesium because encephalopathy was originally not improving with his lactulose, so we began to suspect Wernicke encephalopathy versus metabolic from electrolyte deficiency. Dr. Suh followed the patient while in the hospital. Dr. Mike, oncologist also saw the patient. Palliative and Hospice Care were consulted. The patient and his family both expressed their wishes to be discharged home on hospice with no extraordinary measures. It is recommended at this time to not continue any further chemotherapy protocol as the chemotherapy may be lingering in his system due to worsening liver failure causing encephalopathy and worrisome liver failure. His MELD score was 25, ranged to anywhere from 23 to 25 while here, also Child Burns class C. The patient gradually woke up and on day of discharge , was able to ambulate, tolerating going to the restroom for bowel movement and also tolerating p.o. intake, able to swallow safely from PT recommendations. I recommend regular diet for this patient as any restrictions would hinder his p.o. diet intake. Please refrain from alcohol intake though. The patient as well as family was eager to return home on hospice care. DISPOSITION: Stable upon discharge back home to hospice. DISCHARGE INSTRUCTIONS: 1. Location: Home with hospice care. 2. Diet: Regular diet. No alcohol use. 3. Activity: As tolerated. 4. Follow up with Hospice at home. Job ID: [id number] MTDD
--- NOTE | 2018-12-01 13:41 | EKG ---
Test Reason : Blood Pressure : / mmHG Vent. Rate : 125 BPM Atrial Rate : 125 BPM P-R Int : 000 ms QRS Dur : 088 ms QT Int : 310 ms P-R-T Axes : 212 031 -07 degrees QTc Int : 447 ms Unusual P axis, possible ectopic atrial tachycardia Abnormal ECG Confirmed by BRETT ABRAMS ([id number]), editor & co founder [address] ([id number] on 12/01/2018 1:41:11 PM Referred By: Confirmed By:BRETT ABRAMS
== END 2018-11-30 13:10 | disposition hospice, home (50) | DRG 432 ==
LOC: ERS 10:25 → ERHOLD 16:46 → CCU 11-27 08:05 → ONC 11-27 15:29
PROVIDERS: ADMIT Emergency Medicine; ATTEND Emergency Medicine
PROC: 0W9G3ZX Drainage of Peritoneal Cavity, Percutaneous Approach, Diagnostic (ICD-10-PCS; principal; 2018-11-27)
DX: K70.40 Alcoholic hepatic failure without coma (principal); G93.41 Metabolic encephalopathy; C22.8 Malignant neoplasm of liver, primary, unspecified as to type; E51.2 Wernicke's encephalopathy; C22.1 Intrahepatic bile duct carcinoma; C22.0 Liver cell carcinoma; N17.9 Acute kidney failure, unspecified; C79.9 Secondary malignant neoplasm of unspecified site; K76.6 Portal hypertension; Z66 Do not resuscitate; Z51.5 Encounter for palliative care; M19.90 Unspecified osteoarthritis, unspecified site; B19.20 Unspecified viral hepatitis C without hepatic coma; N40.0 Benign prostatic hyperplasia without lower urinary tract symptoms; J44.9 Chronic obstructive pulmonary disease, unspecified; K70.31 Alcoholic cirrhosis of liver with ascites; E86.0 Dehydration; F10.10 Alcohol abuse, uncomplicated; D69.6 Thrombocytopenia, unspecified; I10 Essential (primary) hypertension; I25.10 Atherosclerotic heart disease of native coronary artery without angina pectoris; Z90.49 Acquired absence of other specified parts of digestive tract; Z95.1 Presence of aortocoronary bypass graft; F17.210 Nicotine dependence, cigarettes, uncomplicated; K31.89 Other diseases of stomach and duodenum; D64.9 Anemia, unspecified
CPT/HCPCS: 36415; 49083; 70450; 71045; 80053; 80307; 81003; 81015; 82140; 82274; 83690; 83735; 83880; 84100; 84145; 85025; 85060; 85610; 85730; 87040; 87070; 87205; 89051; 93005; 94640; 96361; 96374; C9113; J0696; J1630; J2060; J2270; J3411; J3475; J3490; J7620